=== PATIENT | male | born 1990 | race Caucasian/White ===

== ENCOUNTER 2022-02-20 17:59 | Emergency (ER) | payer MEDICAID, SELFPAY ==
[2022-02-20 18:01] VITALS: BP 142/89; PULSE 80; RESP 18; TEMP 36.7; O2SAT 96; BMI 47.0
--- NOTE | 2022-02-20 18:10 | EDS_ITS ---
HPI History of Present Illness Chief Complaint: Constipation Informant: patient Narrative Narrative: 31-year-old male presenting to the emergency department via EMS with a chief complaint of warm from my rectum. Patient states he was taken a shower today when a low wall worm came out of his rectum and was flopping around on the shower floor. He states that had long pointy ends to it. He states he has not had a good bowel movement for a week. He denies any anal itching. PFSH PFSH Medical History Anxiety Depressed Home Medications fluoxetine 40 mg PO DAILY 02/20/22 [History Last Taken Unknown] mebendazole 100 mg PO BID 3 Days #6 tab 02/20/22 [Rx Last Taken Unknown] trazodone 100 - 200 mg PO QHS 02/20/22 [History Last Taken Unknown] Allergy/AdvReac Type Severity Reaction Status Date / Time amphetamine Allergy Chest Verified 02/20/22 18:01 [From Adderall XR] tightness dextroamphetamine Allergy Chest Verified 02/20/22 18:01 [From Adderall XR] tightness Social History (Updated 02/20/22 @ 18:[address] Collins Garsia DO) Smoking Status: Current every day smoker tobacco type: cigarettes substance use type: does not use ROS ROS ED Constitutional Constitutional ED: Denies chills, fever(s) or weight loss Eyes Eyes: Denies change in vision or diplopia ENT ENT ED: Denies ear pain, rhinorrhea or sore throat Cardiovascular Cardiovascular: Denies chest pain, orthopnea, palpitations or racing heartbeat Respiratory/Chest Respiratory/Chest: Denies cough, dyspnea or orthopnea Gastrointestinal Gastrointestinal: Reports constipation; Denies abdominal pain, diarrhea, nausea or vomiting Genitourinary Genitourinary ED: Denies dysuria, hematuria or urinary frequency Musculoskeletal Musculoskeletal: Denies arthralgias or myalgias Integumentary Denies abscess or rash Neurologic Neurologic: Denies headache(s) or weakness Psychiatric Psychiatric: Denies anxiety, depression, suicidal ideation or suicidal thoughts Endocrine Endocrinology: Denies polydipsia, polyphagia or polyuria Allergic/Immunologic Allergic/Immunologic ED: Denies mouth swelling, tongue swelling or urticaria EXAM Physical Exam Const Vital Signs: 02/20/22 18:01 Temperature 98.1 F Temperature Source Temporal Pulse Rate 80 Respiratory Rate 18 Blood Pressure 142/89 H Blood Pressure Mean 106 Pulse Ox 96 Oxygen Delivery Method Room Air Positive well nourished and well developed General Appearance ED: well developed HEENT Reports normocephalic, head/scalp atraumatic, TM's clear and moist mucous membranes Negative for trauma Tympanic Membrane ED: Yes TM's clear Eyes PERRL and EOMs intact bilaterally Neck no lymphadenopathy, supple and no JVD Resp normal respiratory effort and clear to auscultation bilaterally Cardio regular rate, regular rhythm and no murmurs GI normal to inspection, nondistended, normoactive bowel sounds and non-tender Palpation: soft Back/Spine no CVA tenderness and normal ROM Extremity normal to inspection General Extremety ED: Negative for edema General Extremity: Negative for edema Neuro oriented x3 and CN's II-XII intact bilaterally Sensorium / Orientation: alert Motor Exam: strength 5/5 throughout Psych mental status grossly normal Mood & Affect: Negative for depressed or tearful Skin no rashes or lesions noted and no wounds MDM MDM MDM Narrative Medical decision making narrative: Despite being close enough to see pointed ends to this reported worm he is unable to tell me the color of it. I think it is reasonable to give him a course of mebendazole. As far as his constipation he should buy a bottle of magnesium citrate and start Colace. Discharge Plan Triage Chief Complaint: Constipation ED Provider: Collins Garsia Dx/Rx/DC Orders Clinical Impression: Roundworm infection, Constipation Instructions: Treating Constipation Prescriptions: New mebendazole 100 mg tablet,chewable 100 mg PO BID 3 Days Qty: 6 RF: 0 No Action fluoxetine 40 mg capsule 40 mg PO DAILY RF: 0 trazodone 100 mg tablet 100 - 200 mg PO QHS RF: 0 Primary Care Provider: Lamar Izquierdo Referrals: Lamar Izquierdo MD [Primary Care Provider] - As Needed Activity Restrictions/Additional Instructions: While at the pharmacy you should poultry picker a bottle of magnesium citrate and take a daily Colace until constipation resolves Disposition Disposition: Home, Self Care
== END 2022-02-20 18:28 | disposition home or self-care (01) ==
PROVIDERS: Emergency Provider Emergency Medicine; PCP Internal Medicine; Visit Provider Emergency Medicine
DX: K59.00 Constipation, unspecified (principal); F17.210 Nicotine dependence, cigarettes, uncomplicated; F41.9 Anxiety disorder, unspecified; F32.A Depression, unspecified; Z79.899 Other long term (current) drug therapy; B83.9 Helminthiasis, unspecified
CPT/HCPCS: 99284

== ENCOUNTER 2022-02-24 16:32 | Emergency (ER) | payer MEDICAID, SELFPAY ==
[2022-02-24 16:33] VITALS: BP 128/79; PULSE 75; RESP 18; TEMP 36.1; O2SAT 99; BMI 46.5
--- NOTE | 2022-02-24 16:47 | EKG12_ITS ---
Test Reason : GEN ILL Blood Pressure : / mmHG Vent. Rate : 072 BPM Atrial Rate : 072 BPM P-R Int : 160 ms QRS Dur : 094 ms QT Int : 398 ms P-R-T Axes : 017 031 050 degrees QTc Int : 435 ms Normal sinus rhythm Normal ECG Confirmed by EAGLE CONNOR, SHUN ([id number]), society editor GLORIA LONG ([id number]) on 02/25/2022 1:59:21 PM Referred By: Confirmed By:SHUN GUILLERMO MD
--- NOTE | 2022-02-24 16:48 | EX.ED.DYSGE1 ---
HPI History of Present Illness Chief Complaint: General Illness Detail of Chief Complaint: Generalized weakness and chest pain Informant: patient Onset/Context/Timing Onset: Today Narrative Narrative: Patient presents to the emergency department with fatigue that started this afternoon after going to the mailbox. Patient states that he sat down and was having chest discomfort that he describes as a sharp pain in his left chest. Denies any nausea or vomiting. Does feel short of breath. He has not had discomfort like this before. No history of PE or DVT. No cardiac history. Patient denies recent travel or surgery. Patient was seen in the emergency department recently for worms from his stool and constipation. Patient states that he has been having bowel movement since his last visit to the ER and his insurance company denied his prescription for mebendazole. Patient has not seen any more worms in his stool. Patient denies fever or recent illness. PFSH [facility] Medical History Anxiety Depressed Home Medications fluoxetine 40 mg PO DAILY 02/20/22 [History Last Taken Unknown] mebendazole 100 mg PO BID 3 Days #6 tab 02/20/22 [Rx Last Taken Unknown] trazodone 100 - 200 mg PO QHS 02/20/22 [History Last Taken Unknown] bupropion HCl mg PO 02/24/22 [History Last Taken Unknown] Allergy/AdvReac Type Severity Reaction Status Date / Time amphetamine Allergy Chest Verified 02/24/22 16:36 [From Adderall XR] tightness dextroamphetamine Allergy Chest Verified 02/24/22 16:36 [From Adderall XR] tightness Social History (Updated 02/20/22 @ 18:[address] Collins Garsia DO) Smoking Status: Current every day smoker tobacco type: cigarettes substance use type: does not use ROS ROS ED Constitutional Constitutional ED: Reports systems reviewed and no addt'l complaints, except as documented; Denies body ache(s), change in weight or chills Eyes Eyes: Denies acute decrease in peripheral vision, change in vision, double vision or loss of vision ENT ENT ED: Reports none; Denies ear pain, lip swelling, loss taste/smell, neck pain, otalgia or sore throat Cardiovascular Cardiovascular: Reports none and chest pain; Denies abdominal pain, chest pain with activity, leg edema, lightheadedness, palpitations, rapid heart rate or syncope Respiratory/Chest Respiratory/Chest: Reports none and dyspnea; Denies change in mental status, dry cough, hemoptysis, shortness of breath at rest or shortness of breath with exertion Gastrointestinal Gastrointestinal: Reports none; Denies abdominal pain, change in stool character, diarrhea, hematemesis, hematochezia, melena, rectal bleeding or vomiting Genitourinary Genitourinary ED: Reports none; Denies abdominal discomfort, anuria, dysuria, genital pain or polyuria Musculoskeletal Musculoskeletal: Reports none; Denies arthralgias, back pain, difficulty walking, extremity pain, muscle weakness or myalgias Integumentary Reports none; Denies abscess or rash Neurologic Neurologic: Reports none and weakness; Denies abnormal gait, confusion, focal weakness, frequent falls, headache(s), loss of vision, numbness, paresthesias, radicular pain or vertigo Psychiatric Psychiatric: Reports systems reviewed and no addt'l complaints, except as documented and none; Denies behavioral changes, confusion, difficulty concentrating, hallucinations, suicidal ideation, tactile hallucinations or visual hallucinations Endocrine Endocrinology: Denies none, cold intolerance, excessive sweating, fatigue or heat intolerance Hematologic/Lymphatic Hematologic/Lymphatic: Reports none; Denies anemia, easy bleeding or easy bruising Allergic/Immunologic Allergic/Immunologic ED: Denies as per HPI, none, lip swelling, mouth swelling, throat swelling, tongue swelling or hives EXAM Physical Exam Const Vital Signs: 02/24/22 16:33 Temperature 97 F L Temperature Source Temporal Pulse Rate 75 Respiratory Rate 18 Blood Pressure 128/79 H Blood Pressure Mean 95 Pulse Ox 99 Oxygen Delivery Method Room Air Positive well nourished and well developed General Appearance ED: well developed and NAD HEENT Reports TM's clear and moist mucous membranes normocephalic and atraumatic; Negative for trauma or tenderness Tympanic Membrane ED: Yes TM's clear Eyes PERRL and EOMs intact bilaterally General Eye ED: Negative for pale conjunctiva or scleral icterus Neck no lymphadenopathy, supple and no JVD General: Negative for tenderness Chest Wall inspection of chest normal and palpation of chest normal Chest: Negative for tenderness Resp normal respiratory effort and clear to auscultation bilaterally Effort and Inspection: Negative for respiratory distress or pain with movement Auscultation: Negative for rhonchi, wheezes or diminished lung sounds Cardio regular rate, regular rhythm, S1 normal heart sound, S2 normal heart sound and no murmurs Peripheral Pulses: pulses 2+ throughout GI normal to inspection, nondistended, normoactive bowel sounds, soft to palpation, non-tender, non-distended and no masses Back/Spine no CVA tenderness and no thoracic nor lumbar tenderness Extremity normal to inspection General Extremety ED: Negative for edema General Extremity: Negative for edema Neuro oriented x3, CN's II-XII intact bilaterally, no sensory deficits noted and gait normal Sensorium / Orientation: awake, alert, oriented to person, oriented to place and oriented to time Motor Exam: strength 5/5 throughout and strength abnormal Psych mental status grossly normal Skin no rashes or lesions noted and no wounds MDM MDM MDM Narrative Medical decision making narrative: IV line established on arrival. Lab work-up was normal. EKG was normal. D-dimer was normal. Troponin was normal. Chest x-ray was normal. At this point I do not feel there is anything significant regarding his dyspnea or chest pain. Patient's concerned about his worm situation and I did order outpatient stool for O&P. Patient advised to attempt through his primary care physician to get the medication that was prescribed to him through the emergency department. I feel patient can be discharged to home. Patient to follow-up with his primary care physician in 3 to 5 days. Lab Data Attestation: I reviewed the patient's lab results. Labs: Laboratory Results - last 24 hr 02/24/22 02/24/22 02/24/22 16:57 16:57 16:57 WBC 6.9 RBC 4.97 Hgb 14.2 Hct 42.1 MCV 84.7 MCH 28.6 MCHC 33.7 RDW Std Deviation 39.2 RDW Coeff of Yusef 12.8 Plt Count 242 MPV 9.3 D-Dimer Quant (PE/DVT) < 0.27 L Sodium 139 Potassium 3.7 Chloride 106 Carbon Dioxide 27.0 Anion Gap 6 BUN 12 Creatinine 0.72 Estim Creat Clear Calc 129.31 Est GFR (MDRD) Af Amer 165 Est GFR (MDRD) Non-Af 136 BUN/Creatinine Ratio 16.8 Glucose 128 H Calcium 9.5 Troponin I High Sens 4 Radiography Diagnostic Testing: Clinical Impression(s) from Imaging Studies Chest X-Ray 02/24/22 17:06 IMPRESSION: No acute cardiopulmonary process. Electronically Signed: Arsenio Escobedo MD at 17:43 EDT , Discharge Plan Triage Chief Complaint: General Illness ED Provider: Roxana Mas Dx/Rx/DC Orders Clinical Impression: Chest pain, Acute dyspnea Instructions: ED Chest Pain, Uncertain Cause, ED Dyspnea Prescriptions: No Action fluoxetine 40 mg capsule 40 mg PO DAILY RF: 0 trazodone 100 mg tablet 100 - 200 mg PO QHS RF: 0 mebendazole 100 mg tablet,chewable 100 mg PO BID 3 Days Qty: 6 RF: 0 bupropion HCl 150 mg tablet extended release 24 hr PO RF: 0 Primary Care Provider: Lamar Izquierdo Referrals: Lamar Izquierdo MD [Primary Care Provider] - Disposition Disposition: Home, Self Care
[2022-02-24 17:06] LABS: Hematocrit 42.1 % (40-54); Hemoglobin 14.2 g/dL (13.0-16.5); Mean Corp Hgb Conc 33.7 g/dL (32-36); Mean Corpuscular Hgb 28.6 pg (27.0-32.0); Mean Corpuscular Volume 84.7 fL (80-94); Mean Platelet Vol. 9.3 fl (6.2-12.0); Platelet Count 242 K/mm3 (150-450); RBC Distribution Width CV 12.8 % (11.6-14.6); RBC Distribution Width SD 39.2 fl (35.1-43.9); Red Blood Count 4.97 M/mm3 (4.6-6.2); White Blood Count 6.9 K/mm3 (4.4-11.0)
--- NOTE | 2022-02-24 17:06 | RAD_ITS ---
STUDY: X-RAY CHEST REASON FOR EXAM: Male, 31 years old. chest pain TECHNIQUE: 1 view COMPARISON: None. FINDINGS: Cardiomediastinal silhouette is unremarkable. Costophrenic angles are sharp. Lungs are clear. The trachea is midline. There is no pneumothorax. The bones are grossly intact. RAD/Chest 1 View (Portable) IMPRESSION: No acute cardiopulmonary process. Electronically Signed: Arsenio Escobedo MD at 17:43 EDT ,
[2022-02-24 17:23] LABS: Anion Gap 6 (5-15); BUN 12 mg/dL (7-18); BUN/Creat Ratio 16.8 RATIO (10-20); Calcium,Total 9.5 mg/dL (8.5-10.1); Chloride 106 mmol/L (98-107); Creatinine, Serum 0.72 mg/dL (0.70-1.30); D-Dimer Quantitative (DVT/PE) < 0.27 FEU/ug/m (0.27-0.49); EST Glomerular Filtration Rate 136 mL/min (>60); Est Glom Filt Rate - Afr Amer 165 mL/min (>60); Estimated Creatinine Clearance 129.31 ml/min; Glucose 128 mg/dL (74-106); Potassium 3.7 mmol/L (3.5-5.1); Sodium Level 139 mmol/L (136-145); Troponin-I HS 4 pg/mL (3.0-78.0)
[2022-02-24] MEDS: 0.9% Normal Saline 1,000 ML 150 ML IV (17:39)
[2022-02-24 18:57] VITALS: BP 142/76; PULSE 68; RESP 15; O2SAT 98
== END 2022-02-24 18:58 | disposition home or self-care (01) ==
PROVIDERS: Emergency Provider Emergency Medicine; PCP Internal Medicine; Visit Provider Emergency Medicine
DX: R07.9 Chest pain, unspecified (principal); R06.00 Dyspnea, unspecified; R53.1 Weakness; F17.210 Nicotine dependence, cigarettes, uncomplicated
CPT/HCPCS: 71045; 80048; 84484; 85027; 85379; 93005; 96360; 96361; 99285; J7030

== ENCOUNTER → 2022-02-25 | Outpatient (CLI) | payer MEDICAID, SELFPAY | END | disposition home or self-care (01) | LOC: LABSPEC 21:59 | PROVIDERS: PCP Internal Medicine; Visit Provider Emergency Medicine | DX: B82.0 Intestinal helminthiasis, unspecified (principal) | CPT/HCPCS: 87177; 87209 ==

== ENCOUNTER 2024-06-16 15:40 | Emergency (ER) | payer MEDICAID, SELFPAY ==
[2024-06-16 15:41] VITALS: BP 154/69; PULSE 57; RESP 16; TEMP 36.4; O2SAT 98; BMI 45.5
--- NOTE | 2024-06-16 15:53 | VDLE_ITS ---
Reason For Study: Bialteral leg swelling RIGHT LEFT GSV is normal. GSV is normal. CFV is compressible, spontaneous, phasic, CFV is compressible, spontaneous, phasic, competent and demonstrates normal competent, and demonstrates normal augmentation. augmentation. FV is compressible, spontaneous, phasic, FV is compressible, spontaneous, phasic, competent and demonstrates normal competent and demonstrates normal augmentation. augmentation. POP V is compressible, spontaneous, phasic, POP V is compressible, spontaneous, phasic, competent and demonstrates normal competent and demonstrates normal augmentation. augmentation. T/P Trunk is compressible. T/P Trunk is compressible. PTV is compressible. PTV is compressible. RT PerV is compressible. LT PerV is compressible. Procedure This is a venous duplex using B-mode, color flow and spectral Doppler. Exam performed portable in ED. A preliminary report was called and/or faxed to Dr. Mas. VL/Venous Duplex US - Ramón Extrem Interpretation Summary Deep veins of the bilateral lower extremities are patent and compressible segme ntally. There is no evidence of bilateral lower extremity deep vein thrombosis. The bilateral great saphenous veins appear patent and compressible segmentally. Ordering Physician: Roxana Mas Referring Physician: Lamar Izquierdo Performed By: Bri Younger RVT
--- NOTE | 2024-06-16 15:54 | EDS_ITS ---
HPI History of Present Illness Chief Complaint: Edema Detail of Chief Complaint: Leg edema Informant: patient Narrative Narrative: Patient presents to the emergency department complaint of leg edema x 2 weeks. Patient describes normal urination. Denies recent travel or surgery. Denies any new medications. Denies chest pain or shortness of breath. Denies fever or recent illness. [facility] Medical History (Updated 06/16/24 @ 18:[address] Roxana Mas, DO) Schizophrenia Anxiety Depressed Home Medications ?Medication ?Instructions ?Recorded ?Last Taken ?Type fluoxetine 40 mg capsule 40 mg PO DAILY 02/20/22 Unknown History mebendazole 100 mg chewable tablet 100 mg PO BID 3 days #6 tabs 02/20/22 Unknown Rx trazodone 100 mg tablet 100 - 200 mg PO QHS 02/20/22 Unknown History bupropion HCl 150 mg 24 hr tablet, mg PO 02/24/22 Unknown History extended release furosemide 20 mg tablet (Lasix) 20 mg PO DAILY #5 tabs 06/16/24 Unknown Rx Allergy/AdvReac Type Severity Reaction Status Date / Time amphetamine (From Adderall Allergy Chest Verified 06/16/24 15:45 XR) tightness dextroamphetamine (From Allergy Chest Verified 06/16/24 15:45 Adderall XR) tightness Social History Smoking Status: Current every day smoker tobacco type: cigarettes substance use type: does not use ROS ROS ED Review of Systems ROS Unobtainable: other Constitutional Constitutional ED: Reports lethargy; Denies chills, fever(s), sweats or weight loss Eyes Eyes: Denies blurry vision, change in vision or diplopia ENT ENT ED: Denies rhinorrhea or sore throat Cardiovascular Cardiovascular: Denies chest pain, orthopnea or racing heartbeat Respiratory/Chest Respiratory/Chest: Denies cough, dyspnea, dyspnea on exertion, orthopnea or sputum Gastrointestinal Gastrointestinal: Denies abdominal pain, diarrhea, nausea or vomiting Genitourinary Genitourinary ED: Denies dysuria, hematuria or urinary frequency Musculoskeletal Musculoskeletal: Reports other Details: Bilateral leg edema ; Denies arthralgias, back pain, myalgias or neck pain Integumentary Denies abscess, Abrasions or rash Neurologic Neurologic: Denies headache(s) or weakness Psychiatric Psychiatric: Denies anxiety, depression or suicidal thoughts Endocrine Endocrinology: Denies polydipsia, polyphagia or polyuria Hematologic/Lymphatic Hematologic/Lymphatic: Denies easy bleeding, easy bruising or lymphadenopathy Allergic/Immunologic Allergic/Immunologic ED: Denies mouth swelling, tongue swelling or urticaria EXAM Physical Exam Const Vital Signs: 06/16/24 15:41 06/16/24 15:44 Temperature 97.5 F L Temperature Source Oral Pulse Rate 57 L Respiratory Rate 16 Respiratory Effort Normal Non-Labored Respiratory Pattern Normal Blood Pressure 154/69 H Blood Pressure Mean 97 Pulse Ox 98 Oxygen Delivery Method Room Air Positive well nourished and well developed General Appearance ED: well developed and NAD HEENT Reports TM's clear and moist mucous membranes normocephalic and atraumatic; Negative for trauma or tenderness Tympanic Membrane ED: Yes TM's clear Eyes PERRL and EOMs intact bilaterally General Eye ED: Negative for pale conjunctiva or scleral icterus Neck no lymphadenopathy, supple and no JVD General: Negative for tenderness Chest Wall inspection of chest normal and palpation of chest normal Chest: Negative for tenderness Resp normal respiratory effort and clear to auscultation bilaterally Effort and Inspection: Negative for respiratory distress or pain with movement Auscultation: Negative for rhonchi, wheezes or diminished lung sounds Cardio regular rate, regular rhythm, S1 normal heart sound, S2 normal heart sound and no murmurs Peripheral Pulses: pulses 2+ throughout GI normal to inspection, nondistended, normoactive bowel sounds, soft to palpation, non-tender, non-distended and no masses Back/Spine no CVA tenderness and no thoracic nor lumbar tenderness Extremity Extremity Narrative: +2 edema from the knees down to the feet. No ropes or cords palpated. No cellulitic changes. General Extremety ED: Negative for edema General Extremity: Negative for edema Neuro oriented x3, CN's II-XII intact bilaterally, no sensory deficits noted and gait normal Sensorium / Orientation: awake, alert, oriented to person, oriented to place and oriented to time Motor Exam: strength 5/5 throughout and strength abnormal Psych mental status grossly normal Skin no rashes or lesions noted and no wounds MDM MDM MDM Narrative Medical decision making narrative: Patient presents with leg edema for more than 2 weeks. Unsure if he is eating more salt than usual. He is urinating normally. Clinically looks well. In the differential would be DVTs versus kidney disease versus myxedema or other etiology. IV line established. Venous Dopplers of both lower extremities obtained were negative for DVT. CBC with differential showed a white count of 5.6 with hemoglobin of 11 and platelet count of 225. Chemistries unremarkable. BUN was 2 and creatinine 0.67. BNP minimally elevated at 112. TSH was normal at 1.49. Clinically I do not feel he has CHF. Etiology of his edema unclear. I will order Lasix for 5 days. Advised to follow-up with his primary care physician within next 5 to 7 days. Advised to return if condition should worsen anyway. Lab Data Attestation: I reviewed the patient's lab results. Labs: Laboratory Results - last 24 hr 06/16/24 06/16/24 16:02 16:43 WBC 5.6 RBC 3.97 L Hgb 11.0 L Hct 33.6 L MCV 84.6 MCH 27.7 MCHC 32.7 RDW Std Deviation 42.4 RDW Coeff of Yusef 13.6 Plt Count 225 MPV 10.1 Immature Gran % (Auto) 0.400 Neut % (Auto) 66.7 Lymph % (Auto) 24.3 [place] % (Auto) 6.4 Eos % (Auto) 1.8 Baso % (Auto) 0.4 Absolute Neuts (auto) 3.7 Absolute Lymphs (auto) 1.36 Nucleated RBC % 0 Sodium 139 Potassium 4.0 Chloride 108 H Carbon Dioxide 26.0 Anion Gap 5 BUN 2 L Creatinine 0.67 L Estim Creat Clear Calc 191.95 Est GFR (MDRD) Af Amer 176 Est GFR (MDRD) Non-Af 145 BUN/Creatinine Ratio 3.0 L Glucose 103 Calcium 9.1 Total Bilirubin 0.60 AST 16 ALT 36 Alkaline Phosphatase 62 B-Natriuretic Peptide 112.3 H Total Protein 6.4 Albumin 3.2 Globulin 3.2 Albumin/Globulin Ratio 1.0 TSH 1.490 Urine Color Yellow Urine Clarity Clear Urine pH 6.5 Ur Specific [place] 1.010 Urine Protein Negative Urine Glucose (UA) Normal Urine Ketones Negative Urine Occult Blood Negative Urine Nitrite Negative Urine Bilirubin Negative Urine Urobilinogen Normal Ur Leukocyte Esterase Negative Urine RBC 0 SEEN Urine WBC 0 SEEN Ur Squamous Epith Cells 0 SEEN Urine Bacteria 0 SEEN Urine Mucus 0 SEEN Discharge Plan Triage Chief Complaint: Edema ED Provider: Roxana Mas Dx/Rx/DC Orders Clinical Impression: Edema, peripheral Instructions: ED Peripheral Edema, Bilateral Prescriptions: New furosemide [Lasix] 20 mg tablet 20 mg PO DAILY Qty: 5 0RF No Action fluoxetine 40 mg capsule 40 mg PO DAILY trazodone 100 mg tablet 100 - 200 mg PO QHS mebendazole 100 mg tablet,chewable 100 mg PO BID 3 Days Qty: 6 0RF bupropion HCl 150 mg tablet extended release 24 hr PO Primary Care Provider: Care Physician,No Primary Referrals: Lamar Izquierdo MD [Med Staff - [facility]] - 5-7 Days Print Language: Croatian Disposition Disposition: Home, Self Care
[2024-06-16 16:09] LABS: Absolute Lymphocyte Count 1.36 X10^3/uL (0.83-4.51); Absolute Neutrophil Count 3.7 X10^3/uL (2.0-7.7); Basophil# 0.02 X10^3/uL; Basophil% 0.4 % (0-1); Eosinophils% 1.8 % (0-5); Hematocrit 33.6 % (40-54); Lymphocyte # 1.36 X10^3/ul (0.83-4.51); Lymphocyte % 24.3 % (19-41); Mean Corp Hgb Conc 32.7 g/dL (32-36); Mean Corpuscular Hgb 27.7 pg (27.0-32.0); Mean Corpuscular Volume 84.6 fL (80-94); Mean Platelet Vol. 10.1 fl (6.2-12.0); Monocyte# 0.36 X10^3/uL; Monocyte% 6.4 % (0-10); NRBC Flagged by Analyzer 0 % (0-5); Neutrophil # 3.73 X10^3/uL (2.7-7.7); Neutrophil % 66.7 % (47-70); Platelet Count 225 K/mm3 (150-450); RBC Distribution Width CV 13.6 % (11.6-14.6); RBC Distribution Width SD 42.4 fl (35.1-43.9); Red Blood Count 3.97 M/mm3 (4.6-6.2); White Blood Count 5.6 K/mm3 (4.4-11.0)
[2024-06-16 16:37] LABS: AST(SGOT) 16 U/L (15-37); Alanine Aminotransfer ALT/SGPT 36 U/L (16-61); Albumin, Serum 3.2 g/dL (3.2-5.0); Alkaline Phosphatase 62 U/L (45-117); Anion Gap 5 (5-15); BUN 2 mg/dL (7-18); Calcium,Total 9.1 mg/dL (8.5-10.1); Chloride 108 mmol/L (98-107); Creatinine, Serum 0.67 mg/dL (0.70-1.30); EST Glomerular Filtration Rate 145 mL/min (>60); Est Glom Filt Rate - Afr Amer 176 mL/min (>60); Estimated Creatinine Clearance 191.95 ml/min; Globulin 3.2 g/dL (2.2-4.2); Glucose 103 mg/dL (74-106); Protein, Total 6.4 g/dL (6.4-8.2); Sodium Level 139 mmol/L (136-145)
[2024-06-16 16:47] LABS: BNP,B-Type NATRIURETIC PEPTIDE 112.3 pg/mL (0-100)
[2024-06-16 16:49] LABS: Bacteria 0 SEEN /hpf (None Seen); Mucous, Urine 0 SEEN /hpf (<or=2+); Red Blood Cells-Urine 0 SEEN /hpf (0-5); Squamous Epithelial Cells - UA 0 SEEN /hpf (0-5); White Blood Cells 0 SEEN /hpf (0-5)
[2024-06-16 16:51] LABS: Color, Urine Yellow (Yellow); Glucose, Dipstick Normal (Normal); Ketone-Dipstick Negative (Negative); Leukocyte Esterase-Dipstick Negative /ul (Negative); Nitrite-Dipstick Negative (Negative); Occult Blood-Urine Negative /ul (Negative); Protein-Dipstick Negative (Negative); Urine Bilirubin Dipstick Negative (Negative); Urine Clarity Clear (Clear); Urine Urobilinogen Normal (Normal); Urine pH 6.5 (5.0 - 8.0)
[2024-06-16 18:09] VITALS: BP 147/88; PULSE 78; RESP 18; TEMP 37; O2SAT 99
== END 2024-06-16 18:12 | disposition home or self-care (01) ==
PROVIDERS: Emergency Provider Emergency Medicine; Visit Provider Emergency Medicine
DX: R60.0 Localized edema (principal); F17.210 Nicotine dependence, cigarettes, uncomplicated
CPT/HCPCS: 80053; 81001; 83880; 84443; 85025; 93970; 99283; A4216

== ENCOUNTER → 2025-02-24 | Outpatient (CLI) | payer MEDICAID, SELFPAY ==
[2025-02-24 09:42] LABS: Absolute Lymphocyte Count 2.07 X10^3/uL (0.83-4.51); Basophil# 0.03 X10^3/uL; Basophil% 0.5 % (0-1); Eosinophil# 0.13 X10^3/uL; Eosinophils% 2.3 % (0-5); Hematocrit 40.7 % (40-54); Hemoglobin 13.9 g/dL (13.0-16.5); Lymphocyte # 2.07 X10^3/ul (0.83-4.51); Lymphocyte % 36.8 % (19-41); Mean Corp Hgb Conc 34.2 g/dL (32-36); Mean Corpuscular Hgb 28.7 pg (27.0-32.0); Mean Corpuscular Volume 84.1 fL (80-94); Mean Platelet Vol. 9.9 fl (6.2-12.0); Monocyte# 0.43 X10^3/uL; Monocyte% 7.7 % (0-10); NRBC Flagged by Analyzer 0 % (0-5); Neutrophil # 2.95 X10^3/uL (2.7-7.7); Neutrophil % 52.5 % (47-70); Platelet Count 244 K/mm3 (150-450); RBC Distribution Width CV 13.2 % (11.6-14.6); RBC Distribution Width SD 40.7 fl (35.1-43.9); Red Blood Count 4.84 M/mm3 (4.6-6.2); White Blood Count 5.6 K/mm3 (4.4-11.0)
[2025-02-24 10:46] LABS: ALB/GLOB Ratio 1.4 RATIO (0.9-2.4); AST(SGOT) 17 U/L (<=37); Alanine Aminotransfer ALT/SGPT 27 U/L (<=46); Albumin, Serum 4.3 g/dL (3.5-5.0); Alkaline Phosphatase 76 U/L (40-129); Anion Gap 11 (5-15); BUN 14 mg/dL (4-19); BUN/Creat Ratio 16.1 RATIO (10-20); Calcium,Total 9.2 mg/dL (7.6-11.0); Carbon Dioxide 23.2 mmol/L (21.0-32.0); Chloride 104 mmol/L (98-108); Cholesterol 160 mg/dL (<=200); Creatinine, Serum 0.84 mg/dL (0.70-1.20); EST Glomerular Filtration Rate 117 (>60); Estradiol 46.5 pg/mL; Glucose 147 mg/dL (70-99); High Density Lipoprotein 43 mg/dL; Low Density Lipoprotein Calc. 80 mg/dL; Potassium 4.3 mmol/L (3.3-5.1); Protein, Total 7.4 g/dL (5.9-8.4); Sodium Level 138 mmol/L (133-145); Total Bilirubin 0.46 mg/dL (0.00-1.30); Triglycerides 182 mg/dL; Very Low Density Lipoprotein 36 mg/dL (5-40); Vitamin D,25 Hydroxy 11.9 ng/mL (30-100)
== END | disposition home or self-care (01) ==
LOC: LAB 08:30
DX: F64.0 Transsexualism (principal); Z51.81 Encounter for therapeutic drug level monitoring; Z79.890 Hormone replacement therapy; Z86.39 Personal history of other endocrine, nutritional and metabolic disease
CPT/HCPCS: 36415; 80053; 80061; 82306; 82670; 84403; 85025

== ENCOUNTER → 2025-05-25 | Outpatient (CLI) | payer MEDICAID, SELFPAY ==
[2025-05-25 14:29] LABS: Hematocrit 37.3 % (40-54); Hemoglobin 13.0 g/dL (13.0-16.5); Immature Granulocytes Count 0.010 X10^3/uL (0.0-0.0); Mean Corp Hgb Conc 34.9 g/dL (32-36); Mean Corpuscular Volume 83.3 fL (80-94); Mean Platelet Vol. 9.6 fl (6.2-12.0); NRBC Flagged by Analyzer 0 % (0-5); Platelet Count 241 K/mm3 (150-450); RBC Distribution Width CV 13.2 % (11.6-14.6); RBC Distribution Width SD 40.2 fl (35.1-43.9); Red Blood Count 4.48 M/mm3 (4.6-6.2); White Blood Count 6.9 K/mm3 (4.4-11.0)
[2025-05-25 15:23] LABS: AST(SGOT) 18 U/L (<=37); Alanine Aminotransfer ALT/SGPT 32 U/L (<=46); Albumin, Serum 4.2 g/dL (3.5-5.0); Alkaline Phosphatase 61 U/L (40-129); Anion Gap 13 (5-15); BUN 15 mg/dL (4-19); BUN/Creat Ratio 22.7 RATIO (10-20); Calcium,Total 9.5 mg/dL (7.6-11.0); Carbon Dioxide 21.0 mmol/L (21.0-32.0); Chloride 101 mmol/L (98-108); Globulin 2.8 g/dL (2.2-4.2); Glucose 132 mg/dL (70-99); Potassium 4.3 mmol/L (3.3-5.1)
--- OUTSIDE RECORDS SUMMARY | 2025-05-25 20:18 | XMS RPT_ITS | CCD ---
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 Name Role Phone Lamar Mejias MD Primary Care Provider GANTA, LAMAR Primary Care Unavailable GANTA, LAMAR Attending Unavailable RANDELL, LAMAR Attending Unavailable GANTA, LAMAR Primary Care Unavailable GANTA, LAMAR Referring Unavailable GANTA, LAMAR Primary Care Unavailable KARI JOINER Attending Unavailable SHERTA, LAMAR Primary Care Unavailable COLLINS NEFF Attending Unavailable KARI JOINER Referring Unavailable SHY PRATT Attending Provider Care Physician, No Primary Primary Care Provider Unavailable Barrington Arambula Attending Unavailable Ungur, Remus Referring Unavailable Care Physician, No Primary Primary Care Unava ilable Care Physician, No Primary Primary Care Unava ilable BLANCA, 1 Attending Unavailable Ungur, Remus Attending Unavailable Care Physician, No Primary Primary Care Unava ilable TERENCE, SHY Attending Unavailable TERENCE, SHY Primary Care Unavailable TERENCE, SHY Attending Unavailable TERENCE, SHY Primary Care Unavailable TERENCE, SHY Attending Unavailable TERENCE, SHY Primary Care Unavailable TERENCE, SHY Attending Unavailable TERENCE, SHY Primary Care Unavailable Allergies Allergy Classification Reported Allergen(s) Allergy Type Date of Onset Reaction(s) Facility (3 sources) Amphetamine Drug Allergy 02-21-20 Chest tightness [facility] (3 sources) Dextroamphetamine Drug Allergy 02-21-20 Chest tightness [facility] (4 sources) DULoxetine; Translations: [DULOXETINE] Drug Allergy 07-07-20 Other: See Comments [facility] Work Phone: (1 source) Amphetamine Drug Allergy 06-16-20 [facility] Repository (1 source) Dextroamphetamine Drug Allergy 06-16-20 [facility] Repository Medications Current Medications Medication Drug Class(es) Dates Sig (Normalized) Sig (Original) 24 hr buPROPion hydrochloride 150 mg extended release oral tablet (2 sources) Aminoketone Start: 02-24-2022 Bupropion Hcl Active MG PO February 24, 2022 4:44pm Start: 02-24-2022 take 1 tablet by kathia th every twenty-four hours Bupropion Hcl 150 mg tablet extended release 24 hr Active mg PO February 24, 2022 12:00am furosemide 20 mg oral tablet (1 source) Loop Diuretic Start: 06-16-2024 take 1 tablet by mouth once daily Furosemide (Lasix) 20 mg tablet Active 20 mg PO DAILY June 16, 2024 12:00am mebendazole 100 mg chewable tablet (3 sources) Antihelminthic Start: 02-20-2022 take 100 mg by mouth twice daily Mebendazole Active 100 MG PO TWICE A DAY 6 February 20, 2022 6:14pm sulfamethoxazole 800 mg / trimethoprim 160 mg oral tablet (1 source) Dihydrofolate Reductase Inhibitor Antibacterial, Sulfonamide Antimicrobial Start: 05-27-2022 End: 06-06-2022 take 1 tablet by mouth twice daily sulfamethoxazole -trimethoprim (BACTRIM DS) 800-160 mg per tablet Take 1 tablet by mouth twice daily for 10 days. 20 tablet 0 05/27/2022 06/06/2022 Active Comment on above: Take 1 tablet by kathia th twice daily for 10 days. Completed/Discontinued Medications Medication Drug Class(es) Dates Sig (Normalized) Sig (Original) busPIRone hydrochloride 10 mg oral tablet (2 sources) Start: 03-12-2022 take 1 tablet by mouth twice daily busPIRone (BUSPAR) 10 mg tablet Indications: Anxiety and depression Take 1 tablet by mouth twice daily. 60 tablet 0 03/12/2022 Active Comment on above: Take 1 tablet by kathia th twice daily. FLUoxetine 40 mg oral capsule (6 sources) Serotonin Reuptake Inhibitor Start: 03-12-2022 take 1 capsule by mouth once daily FLUoxetine (PROZAC) 40 mg capsule Indications: Anxiety and depression Take 1 capsule by mouth once daily. 0 03/12/2022 Active Start: 02-20-2022 take 40 mg by mouth once daily Fluoxetine Active 40 MG PO DAILY May 11th, 2022 6:04pm Start: 07-07-2020 take 1 tablet by kathia once daily FLUoxetine 10 mg tablet Take 1 tablet by mouth once daily. 30 tablet 4 07/07/2020 Active Comment on above: Take 1 tablet by kathia once daily. Take 1 capsule by [facility] once daily. mupirocin 0.02 mg/mg topical ointment (2 sources) RNA Synthetase Inhibitor Antibacterial Start: 11-19-19 End: 05-27-20 mupirocin (BACTROBAN) 2 % ointment Apply 1 application to affected area three times daily. 100 g 1 11/19/2019 05/27/2022 Discontinued (Discontinued by Patient) Comment on above: Apply 1 application to affected area three times daily. 24 hr nicotine 0.292 mg/hr transdermal system (6 sources) Cholinergic Nicotinic Agonist Start: 04-11-20 End: 06-10-20 apply 1 dose transdermal route every twenty-four hours nicotine (NICODERM) 7 mg/24 hr Indications: Tobacco use disorder Apply 1 Patch as directed every 24 hours for 14 days. Use the 14mg patches once daily for 2 weeks then start the 7mg patches daily for 2 weeks. 14 Patch 0 05/27/2022 Active Start: 03-12-2022 End: 06-10-2022 apply 1 dose transdermal route every twenty-four hours nicotine (NICODERM) 14 mg/24 hr Indications: nicotine withdrawal symptoms , smoking cessation Apply 1 Patch as directed every 24 hours for 14 days. Use the 14mg once daily for 2 weeks then start the 7mg patches for 2 weeks. 14 Patch 0 05/27/2022 Active Comment on above: Apply 1 Patch as dir ected every 24 hours for 14 days. Use the 14mg once daily for 2 weeks then start the 7mg patches for 2 weeks. Apply 1 Patch as dir ected every 24 hours for 14 days. Use the 14mg patches once daily for 2 weeks then start the 7mg patches daily for 2 weeks. Apply 1 Patch as dir ected every 24 hours. traZODone hydrochloride 100 mg oral tablet (6 sources) Serotonin Reuptake Inhibitor Start: 2 take 2 tablets by mouth once daily at bedtime traZODone (DESYREL) 100 mg tablet Indications: Anxiety and depression Take 2 tablets by mouth daily at bedtime. 0 03/12/2022 Active Start: 09-11-2021 take 100-200 mg by m outh at bedtime Trazodone 100 mg tablet Active 100 - 200 mg PO AT BEDTIME February 20, 2022 12:00am Comment on above: Take 1 tablet by kathia th daily at bedtime. Take 2 tablets by mo uth daily at bedtime. Problems Active Problems Problem Classification Problem Date Documented Da te Episodic/Chronic Anal and rectal conditions (2 sources) Rectal abscess ; Translations: [Rectal abscess] Onset: 06-24-2022 Episodic Anxiety disorders (3 sources) Anxiety; Translations: [Anxiety disorder, unspecified] Onset: 01-16-2016 10-08-2021 Chronic Attention-deficit, conduct, and disruptive behavior disorders (3 sources) Attention deficit hyperactivity disorder 05-21-2011 Chronic Developmental disorders (3 sources) Intellectual disability; Translations: [Unspecified intellectual disabilities] Onset: 01-16-2016 10-08-2021 Chronic Hemorrhoids (1 source) Thrombosed external hemorrhoids; Translations: [Perianal venous thrombosis] Episodic Menopausal disorders (2 sources) Hormone replacement therapy; Translations: [Hormone replacement therapy] Onset: 01-24-2023 Episodic Miscellaneous mental health disorders (5 sources) Transsexualism; 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, unspecified] Onset: 01-24-2023 Chronic Nonspecific chest pain (2 sources) Chest pain; Translations: [Chest pain, unspecified] 03-04-2022 Episodic Other aftercare (2 sources) Encounter for therapeutic drug level monitoring; Translations: [Encounter for therapeutic drug level monitoring] Onset: 05-23-2025 Episodic Other gastrointestinal disorders (3 sources) Constipation; Translations: [Constipation, unspecified] 02-28-2022 Episodic Other infections; including parasitic (3 sources) Ascariasis; Translations: [Ascariasis, unspecified] 02-28-2022 Episodic Other lower respiratory disease (2 sources) Dyspnea; Translations: [Dyspnea, unspecified] 03-04-2022 Episodic Residual codes; unclassified (3 sources) Auditory hallucinations; Translations: [Auditory hallucinations] 10-08-2021 Episodic Residual codes; unclassified (1 source) Peripheral edema; Translations: [Localized edema] 06-24-2024 Episodic Substance-related disorders (4 sources) Tobacco user; Translations: [Nicotine dependence, unspecified, uncomplicated] 10-08-2021 Chronic Unclassified (1 source) Patient's noncompliance with other medical treatment and regimen due to unspecified reason; Translations: [Patient's noncompliance with other medical treatment and regimen due to unspecified reason] Onset: 01-24-2025 Past or Other Problems Problem Classification Problem Date Documented Date Episodic/Chronic Other nutritional; endocrine; and metabolic disorders (2 sources) Personal history of other endocrine, nutritional and metabolic disease; Translations: [Personal history of other endocrine, nutritional and metabolic disease] Onset: 01-24-2025 Episodic Residual codes; unclassified (1 source) Localized edema; Translations: [Localized edema] Onset: 07-06-2024 Episodic Spondylosis; intervertebral disc disorders; other back problems (3 sources) Backache; Translations: [Dorsalgia, unspecified] Onset: 05-06-2011 05-06-2011 Episodic Unclassified (1 source) Patient's noncompliance with other medical treatment and regimen due to unspecified reason; Translations: [Patient's noncompliance with other medical treatment and regimen due to unspecified reason] Onset: 01-24-2025 Results Test Name Value Interpretation Reference Range Facility Office Visiton 05-23-2025 Follow-up visit [id number] Bishop Canales 1990 M Date Provider Department Center 05/23/2025 [id number] PR[facility] Family History Problem Relation Age of Onset Seizures Mother Suicide Attempts Mother Bipolar disorder Father Schizophrenia Father Alcohol abuse Father Muscular dystrophy Brother Other Brother Muscular dystrophy Brother Comments: at age 22 after requesting t be taken off life support Family Status - Relation Status Age at Mother Father Brother Alive Brother Level of Service:[id number] NE OFFICE/OUTPATIENT ESTABLISHED MOD MDM 30 MIN Reason for Visit and Comments: 3 Month Follow Up [[id number]] - 3m hrt follow up, requesting bilateral ear flushing Normal [facility] Progress Noteon 05-23-2025 Progress Note [facility] [address] [place] [address] 05/23/2025 ASSESSMENT AND PLAN 1. Hormone replacement therapy 2. Medication monitoring encounter 3. Gender incongruence Tolerating estrogen, spironolactone Patient is seeing positive results from medication & is getting expected/desired physical changes. - Discussed switching to injections. Has been on in the past reviewed injection process today Continue with HRT- Will refill/adjust medication based on labwork,. Refills sent after labs return - Patient continues to meet criteria for use of gender-affirming hormone therapy - Continuing gender-affirming hormone therapy is medically necessary and withholding or terminating its use would cause harm to the patient Labs ordered: - CBC auto differential - Comprehensive metabolic panel - Estradiol - Testosterone - Estrone Diagnosis and treatment plan were reviewed with patient and they agreed with the current treatment plan. Their questions were answered, and they verbalized understanding of above instructions. Contact office with questions or concerns in the interim. Return to clinic in 3 months or sooner p.r.n. SUBJECTIVE HPI: -Ellie Canales is a 34 y.o. adult here for follow up- hormone replacement therapy. 1) HRT HARITHA: 01/24/2025 Medical transition Started on hormones: 2 years ago, 12/10/22 - regiment: roland 150mg dose and estradiol 4 mg daily sublingual Side effects: none, tolerating well much better compliance with daily oral. Current transition concerns: wanting tapia breasts, not interested in returning on Progesterone. Would like switch back to injections Changes seen to date: softer skin, body hair growing in thinner and longer facial hair growth, breast growth continues, mood ok, body contour changes. Has been off roland for 3 days notes increased libido and energy Other transition goals/progress Surgical transition: not interested in any surgeries at this time Legal transition: completed [facility]ie [facility], certificate changed name. Has not changed gender markers. Waiting for new SS card and insurance Voice transition: unable to go to visits -transportation issues. Going to work on it at home. Social transition- Falling out with family- were not supportive. Does have case workers & therapists that are supportive they consider them a support network. Social/Interim Hx: - chronic mental health conditions- managed by psychiatry- stable on current medications Changed to wellbutrin from prozac tolerating well - Fishing Workercleveland zuleta present today and is their ride. Will have a new case management coordinator soon - barriers to compliance-transport ation issues ROS Review of Systems Constitutional: Negative for fatigue and fever. Eyes: Negative for visual disturbance. Respiratory: Negative for shortness of breath. Cardiovascular: Negative for chest pain and palpitations. Gastrointestinal: Negative for nausea. Skin: Negative for rash. Neurological: Negative for dizziness and headaches. Psychiatric/Behavior al: Positive for dysphoric mood. The patient is nervous/anxious. +gender dysphoria Medical History[1] Current Medications[2] Social History Tobacco Use Smoking status: Former Current packs/day: 0.00 Average packs/day: 0.8 packs/day for 14.0 years (11.2 ttl pk-yrs) Types: Cigarettes Start date: 2003 Quit date: 2017 Years since quittin.6 Smokeless tobacco: Never Tobacco comments: Reports he started smoking at age 13 and quit at 17, but information differs by patient self-reporting. Substance Use Topics Alcohol use: Not Currently Comment: reports being social drinker, heavy drinker and binge drinker at different times Surgical History[3] OBJECTIVE Vitals: 05/23/25 0907 BP: 102/54 Pulse: 71 SpO2: 96% Weight: 264 lb (120 kg) Height: 5' 6 (1.676 m) Physical Exam Vitals and nursing note reviewed. Constitutional: General: Ember is not in acute distress. Appearance: Normal appearance. Comments: Using phone (typing) often throughout visit. Limited eye contact but responds to questions HENT: Head: Atraumatic. Eyes: Extraocular Movements: Extraocular movements intact. Conjunctiva/sclera: Conjunctivae normal. Cardiovascular: Rate and Rhythm: Normal rate and regular rhythm. Pulmonary: Effort: Pulmonary effort is normal. Skin: General: Skin is warm and dry. Neurological: Mental Status: Ember is alert and oriented to person, place, and time. Psychiatric: Mood and Affect: Mood normal. Affect is flat. Behavior: Behavior normal. Thought Content: Thought content normal. Data Reviewed Labs/Imaging/Testing /Notes: outside pertinent to review none. -- Shy Pratt PA-C [1] Past Medical History: Diagnosis Date ADHD (attention deficit hyperactivity disorder) 05/04/2020 Anxiety Auditory hallucinations 05/21/2011 Bipolar d (more content not included)... Normal [facility] Absolute lymphocyte counton 02-24-2025 Lymphocytes Auto (Unsp spec) [#/Vol] 2.07 10*3/uL 0.83-4.51 [facility] Absolute neutrophil counton 02-24-2025 Neutrophils (Bld) [#/Vol] 3.0 10*3/uL 2.0-7.7 [facility] Anion gap in Serum or Plasma on 02-24-2025 Anion gap [Moles/Vol] 11 mmol/L 02-24 [facility] Automated lymphocyte count a s percentage of total leukocyteson 02-24-2025 Lymphocytes/100 WBC Auto (Unsp spec) 36.8 % [facility] BUN/creatinine ratioon 02-24 Urea nitrogen/Creatinine [Mass ratio] 16.1 mg/mg 08-01 [facility] Basophil percentageon 2024 Basophils/100 WBC (Bld) 0.5 % 0- [facility] Bilirubin, totalon Bilirubin [Mass/Vol] 0.46 mg/dL 0.00-1.30 [facility] CBC W/Diff, Automatedon 02-10 Absolute Lymph 2.07 X10 3/uL Normal 0.83-4.51 [facility] Comment on above: Performed By: #### L 506.1001, L500.4100, L100.0100, L500.4050, L3300.1750, L509.3001 #### [facility] [address] [place], [address] Absolute Neut 3.0 X10 3/uL Normal 2.0-7.7 [facility] Comment on above: Performed By: #### L 506.1001, L500.4100, L100.0100, L500.4050, L3300.1750, L509.3001 #### [facility] [address] [place], [address] Basophils/100 WBC (Bld) 0.5 % Normal 0-1 [facility] Comment on above: Performed By: #### L 506.1001, L500.4100, L100.0100, L500.4050, L3300.1750, L509.3001 #### [facility] [address] [place], [address] Eosinophils/100 WBC (Bld) 2.3 % Normal 0-5 [facility] Comment on above: Performed By: #### L 506.1001, L500.4100, L100.0100, L500.4050, L3300.1750, L509.3001 #### [facility] [address] [place], [address] Erythrocyte distribution width (RBC) [Ratio] 13.2 % Normal 11.6-14.6 [facility] Comment on above: Performed By: #### L 506.1001, L500.4100, L100.0100, L500.4050, L3300.1750, L509.3001 #### [facility] [address] [place], [address] Hematocrit (Bld) [Volume fraction] 40.7 % Normal 40-54 [facility] Comment on above: Performed By: #### L 506.1001, L500.4100, L100.0100, L500.4050, L3300.1750, L509.3001 #### [facility] [address] [place], [address] Hemoglobin (Bld) [Mass/Vol] 13.9 g/dL Normal 13.0-16.5 [facility] Comment on above: Performed By: #### L 506.1001, L500.4100, L100.0100, L500.4050, L3300.1750, L509.3001 #### [facility] [address] [place], [address] IG% 0.200 Normal 0.0-0.9 [facility] Comment on above: Result Comment: IG% - Immature Granulocytes (promyelocytes, myelocytes and metamyelocytes) > 1% indicates that a LEFT SHIFT is Present. Performed By: #### L 506.1001, L500.4100, L100.0100, L500.4050, L3300.1750, L509.3001 #### [facility] [address] [place], [address] Lymphocytes/100 WBC (Bld) 36.8 % Normal 19-41 [facility] Comment on above: Performed By: #### L 506.1001, L500.4100, L100.0100, L500.4050, L3300.1750, L509.3001 #### [facility] [address] [place], [address] MCH (RBC) [Entitic mass] 28.7 pg Normal 27.0-32.0 [facility] Comment on above: Performed By: #### L 506.1001, L500.4100, L100.0100, L500.4050, L3300.1750, L509.3001 #### [facility] [address] [place], [address] MCHC (RBC) [Mass/Vol] 34.2 g/dL Normal 32-36 [facility] Comment on above: Performed By: #### L 506.1001, L500.4100, L100.0100, L500.4050, L3300.1750, L509.3001 #### [facility] [address] [place], [address] MCV (RBC) [Entitic vol] 84.1 fL Normal 80-94 [facility] Comment on above: Performed By: #### L 506.1001, L500.4100, L100.0100, L500.4050, L3300.1750, L509.3001 #### [facility] [address] [place], [address] Monocytes/100 WBC (Bld) 7.7 % Normal 0-10 [facility] Comment on above: Performed By: #### L 506.1001, L500.4100, L100.0100, L500.4050, L3300.1750, L509.3001 #### [facility] [address] [place], [address] Neutrophils/100 WBC (Bld) 52.5 % Normal 47-70 [facility] Comment on above: Performed By: #### L 506.1001, L500.4100, L100.0100, L500.4050, L3300.1750, L509.3001 #### [facility] [address] [place], [address] Nucleated RBC (Bld) [#/Vol] 0 10*3/uL Normal 0-5 [facility] Comment on above: Performed By: #### L 506.1001, L500.4100, L100.0100, L500.4050, L3300.1750, L509.3001 #### [facility] [address] [place], [address] Platelet mean volume (Bld) [Entitic vol] 9.9 fL Normal 6.2-12.0 [facility] Comment on above: Performed By: #### L 506.1001, L500.4100, L100.0100, L500.4050, L3300.1750, L509.3001 #### [facility] [address] [place], [address] Platelets (Bld) [#/Vol] 244 10*3/uL Normal 150-450 [facility] Comment on above: Performed By: #### L 506.1001, L500.4100, L100.0100, L500.4050, L3300.1750, L509.3001 #### [facility] [address] [place], [address] RBC (Bld) [#/Vol] 4.84 10*6/uL Normal 4.6-6.2 [facility] Comment on above: Performed By: #### L 506.1001, L500.4100, L100.0100, L500.4050, L3300.1750, L509.3001 #### [facility] [address] [place], [address] RDW SD 40.7 fl Normal 35.1-43.9 [facility] Comment on above: Performed By: #### L 506.1001, L500.4100, L100.0100, L500.4050, L3300.1750, L509.3001 #### [facility] [address] [place], [address] WBC (Bld) [#/Vol] 5.6 10*3/uL Normal 4.4-11.0 [facility] Comment on above: Performed By: #### L 506.1001, L500.4100, L100.0100, L500.4050, L3300.1750, L509.3001 #### [facility] [address] [place], [address] Calculated very low density lipoprotein (VLDL) cholesterol measurementon 02-24-2025 Calculated very low density lipoprotein (VLDL) cholesterol measurement 36 mg/dL 5-40 [facility] Carbon dioxide, total [Moles /volume] in Central venous bloodon 02-24-2025 CO2 [Moles/Vol] 23.2 mmol/L 21.0-32.0 [facility] Chloride assayon 02-24-2025 Chloride [Moles/Vol] 104 mmol/L 98-108 [facility] Comprehensive Metabolic Prof ilon 02-24-2025 Albumin [Mass/Vol] 4.3 g/dL Normal 3.5-5.0 [facility] Comment on above: Performed By: #### L 506.1001, L500.4100, L100.0100, L500.4050, L3300.1750, L509.3001 #### [facility] [address] [place], [address] Albumin/Globulin [Mass ratio] 1.4 {ratio} Normal 0.9-2.4 [facility] Comment on above: Performed By: #### L 506.1001, L500.4100, L100.0100, L500.4050, L3300.1750, L509.3001 #### [facility] [address] [place], [address] ALK PHOS 76 U/L Normal 40-129 [facility] Comment on above: Performed By: #### L 506.1001, L500.4100, L100.0100, L500.4050, L3300.1750, L509.3001 #### [facility] [address] [place], [address] ALT [Catalytic activity/Vol] 27 U/L Normal <=46 [facility] Comment on above: Performed By: #### L 506.1001, L500.4100, L100.0100, L500.4050, L3300.1750, L509.3001 #### [facility] [address] [place], [address] AST [Catalytic activity/Vol] 17 U/L Normal <=37 [facility] Comment on above: Performed By: #### L 506.1001, L500.4100, L100.0100, L500.4050, L3300.1750, L509.3001 #### [facility] [address] [place], [address] Bilirubin [Mass/Vol] 0.46 mg/dL Normal 0.00-1.30 [facility] Comment on above: Performed By: #### L 506.1001, L500.4100, L100.0100, L500.4050, L3300.1750, L509.3001 #### [facility] [address] [place], [address] BUN/CRE 16.1 RATIO Normal 10-20 [facility] Comment on above: Performed By: #### L 506.1001, L500.4100, L100.0100, L500.4050, L3300.1750, L509.3001 #### [facility] [address] [place], [address] Calcium [Mass/Vol] 9.2 mg/dL Normal 7.6-11.0 [facility] Comment on above: Performed By: #### L 506.1001, L500.4100, L100.0100, L500.4050, L3300.1750, L509.3001 #### [facility] [address] [place], [address] Chloride [Moles/Vol] 104 mmol/L Normal 98-108 [facility] Comment on above: Performed By: #### L 506.1001, L500.4100, L100.0100, L500.4050, L3300.1750, L509.3001 #### [facility] [address] [place], [address] CO2 [Moles/Vol] 23.2 mmol/L Normal 21.0-32.0 [facility] Comment on above: Performed By: #### L 506.1001, L500.4100, L100.0100, L500.4050, L3300.1750, L509.3001 #### [facility] [address] [place], [address] Creatinine [Mass/Vol] 0.84 mg/dL Normal 0.70-1.20 [facility] Comment on above: Performed By: #### L 506.1001, L500.4100, L100.0100, L500.4050, L3300.1750, L509.3001 #### [facility] [address] [place], [address] GAP 11 Normal 5-15 [facility] Comment on above: Performed By: #### L 506.1001, L500.4100, L100.0100, L500.4050, L3300.1750, L509.3001 #### [facility] [address] [place], [address] GFR/1.73 sq M.predicted among non-blacks MDRD (S/P/Bld) [Vol rate/Area] 117 mL/min/{1.73_m2} Normal >60 [facility] Comment on above: Result Comment: mL/m in/1.73m2 CKD-EPI Creatinine Equation (2020) Performed By: #### L 506.1001, L500.4100, L100.0100, L500.4050, L3300.1750, L509.3001 #### [facility] [address] [place], [address] Globulin (S) [Mass/Vol] 3.0 g/dL Normal 2.2-4.2 [facility] Comment on above: Performed By: #### L 506.1001, L500.4100, L100.0100, L500.4050, L3300.1750, L509.3001 #### [facility] [address] [place], [address] Glucose [Mass/Vol] 147 mg/dL High 70-99 [facility] Comment on above: Performed By: #### L 506.1001, L500.4100, L100.0100, L500.4050, L3300.1750, L509.3001 #### [facility] [address] [place], [address] Potassium [Moles/Vol] 4.3 mmol/L Normal 3.3-5.1 [facility] Comment on above: Performed By: #### L 506.1001, L500.4100, L100.0100, L500.4050, L3300.1750, L509.3001 #### [facility] [address] [place], [address] Sodium [Moles/Vol] 138 mmol/L Normal 133-145 [facility] Comment on above: Performed By: #### L 506.1001, L500.4100, L100.0100, L500.4050, L3300.1750, L509.3001 #### [facility] [address] [place], [address] T PROT 7.4 g/dL Normal 5.9-8.4 [facility] Comment on above: Performed By: #### L 506.1001, L500.4100, L100.0100, L500.4050, L3300.1750, L509.3001 #### [facility] [address] [place], [address] Urea nitrogen [Mass/Vol] 14 mg/dL Normal 4-19 [facility] Comment on above: Performed By: #### L 506.1001, L500.4100, L100.0100, L500.4050, L3300.1750, L509.3001 #### [facility] [address] [place], [address] Eosinophil percentageon 05- Eosinophils/100 WBC (Bld) 2.3 % 0-5 [facility] Erythrocyte distribution wid th ratioon 02-24-2025 Erythrocyte distribution width (RBC) [Ratio] 13.2 % 11.6-14.6 [facility] Erythrocyte distribution wid th standard deviationon 02-24-2025 Erythrocyte distribution width (RBC) [Ratio] 40.7 fl 35.1-43.9 [facility] Estradiolon 02-24-2025 ESTRADIOL 46.5 pg/mL Normal [facility] Comment on above: Result Comment: MALE S ADULT MALE: 10-40 pg/mL PHOENIX STAGES MEAN AGE REFERENCE RANGES Stage I(>14 days and prepubertal) 7.1 years Undetectable-13 pg/mL Stage II 12.1 years Undetectable-16 pg/mL Stage III 13.6 years Undetectable-26 pg/mL Stage IV 15.1 years Undetectable-38 pg/mL Stage V 18 years 10-40 pg/mL Puberty onset (transition from Phoenix stage I to Phoenix Stage II) occurs for boys at a median age of 11.5 (+/- 2) years. For boys, there is no proven relationship between puberty onset and body weight or ethnic origin. Progression through Phoenix stages is variable. Phoenix stage V (adult) should be reached by age 18. Performed By: #### L 100.0100, L500.4050, L503.6620, L501.9520 #### [facility] [address] [place], [place], [id number] Glomerular filtration rate ( GFR) estimation/1.73 sq m using serum, plasma, or whole bon 02-24-2025 GFR/1.73 sq M.predicted among non-blacks MDRD (S/P/Bld) [Vol rate/Area] 117 mL/min/{1.73_m2} >60 [facility] Comment on above: mL/min/1.73m2 CKD-EP I Creatinine Equation (2020) Hematocrit Auto (Bld) [Volum e fraction]on 02-24-2025 Hematocrit (Bld) [Volume fraction] 40.7 % 40-54 [facility] Hemoglobin measurementon Hemoglobin (Bld) [Mass/Vol] 13.9 g/dL 13.0-16.5 [facility] Immature granulocytes/100 WB C Auto (Bld)on 02-24-2025 Immature granulocytes/100 WBC (Bld) 0.200 % 0.0-0.9 [facility] Comment on above: IG% - Immature Granu locytes (promyelocytes, myelocytes and metamyelocytes) > 1% indicates that a LEFT SHIFT is Present. L509.3001on 02-24-2025 Testosterone [Mass/Vol] 376.00 ng/dL Normal 300-1080 [facility] Comment on above: Performed By: #### L 100.0100, L500.4050, L503.6620, L501.9520 #### [facility] [address] [place], [place], [phone] LDL calc ser/plason 02-25-20 25 Cholesterol in LDL [Mass/Vol] 80 mg/dL [facility] Comment on above: Hyiqhzoidx=092-488 m g/dL & Higher Tlvt=029 mg/dL or greater Laboratory - Chemistry and C hemistry - challengeon 02-24-2025 AST [Catalytic activity/Vol] 17 U/L <38 [facility] Testosterone [Mass/Vol] 376.00 ng/dL 300-1080 [facility] Lipid Profileon 02-24-2025 CHOL:HDL 3.70 Normal [facility] Comment on above: Performed By: #### L 506.1001, L500.4100, L100.0100, L500.4050, L3300.1750, L509.3001 #### [facility] [address] [place], [address] Cholesterol [Mass/Vol] 160 mg/dL Normal <=200 [facility] Comment on above: Result Comment: Chol esterol level, Desirable <200 mg/dL Borderline high cholesterol 200-239 mg/dL High cholesterol >=240 mg/dL Recommendations of the NCEP Adult Treatment Panel for the following risk-cutoff thresholds for the [place] population. Performed By: #### L 506.1001, L500.4100, L100.0100, L500.4050, L3300.1750, L509.3001 #### [facility] [address] [place], [address] Cholesterol in HDL [Mass/Vol] 43 mg/dL Normal [facility] Comment on above: Result Comment: Tomasa onal Cholesterol Education Program (NCEP) guidelines: <40 mg/dL: Low HDL-cholesterol (major risk factor for CHD) >= 60 mg/dL: High HDL-cholesterol (negative risk factor for CHD) HDL-cholesterol is affected by a number of factors, e.g. smoking, exercise, hormones, sex and age. Performed By: #### L 506.1001, L500.4100, L100.0100, L500.4050, L3300.1750, L509.3001 #### [facility] [address] [place], [address] Cholesterol in LDL [Mass/Vol] 80 mg/dL Normal [facility] Comment on above: Result Comment: Bord xaxlxw=064-207 mg/dL Higher Waft=187 mg/dL or greater Performed By: #### L 506.1001, L500.4100, L100.0100, L500.4050, L3300.1750, L509.3001 #### [facility] [address] [place], [place], [phone] (020) Cholesterol in VLDL [Mass/Vol] 36 mg/dL Normal 5-40 [facility] Comment on above: Performed By: #### L 506.1001, L500.4100, L100.0100, L500.4050, L3300.1750, L509.3001 #### [facility] [address] [place], [place], [phone] (679) Triglyceride [Mass/Vol] 182 mg/dL Normal [facility] Comment on above: Result Comment: The drugs N-Acetylcysteine and Metamizole may falsely depress this assay. Normal range: <150 mg/dL Borderline High: 150-199 mg/dL High: 200-499 mg/dL Very High: >500 mg/dL Performed By: #### L 506.1001, L500.4100, L100.0100, L500.4050, L3300.1750, L509.3001 #### [facility] [address] [place], [place], [id number] MCV (mean corpuscular volume ) determinationon 02-24-2025 MCV (RBC) [Entitic vol] 84.1 fL 80-94 [facility] Mean corpuscular hemoglobin (MCH) determinationon 02-24-2025 MCH (RBC) [Entitic mass] 28.7 pg 27.0-32.0 [facility] Mean corpuscular hemoglobin concentration (MCHC) determinationon 02-24-2025 MCHC (RBC) [Mass/Vol] 34.2 g/dL 32-36 [facility] Mean platelet volume determi nationon 02-24-2025 Platelet mean volume (Bld) [Entitic vol] 9.9 fL 6.2-12.0 [facility] Monocyte percentageon 2024 Monocytes/100 WBC (Bld) 7.7 % 0-10 [facility] Neutrophil percentageon 02-10 Neutrophils/100 WBC (Bld) 52.5 % 47-70 [facility] Nucleated red blood cell per centageon 02-24-2025 Nucleated RBC/100 WBC (Bld) [Ratio] 0 % 0-5 [facility] Platelet counton 02-24-2025 Platelets (Bld) [#/Vol] 244 10*3/uL 150-450 [facility] Potassium measurement (mass/ volume)on 02-24-2025 Potassium (Unsp spec) [Mass/Vol] 4.3 mmol/L 3.3-5.1 [facility] RBC Auto (Bld) [#/Vol]on RBC (Bld) [#/Vol] 4.84 10*6/uL 4.6-6.2 [facility] Screening total cholesterol/ high density lipoprotein (HDL) cholesterol ratioon 02-24-2025 Cholesterol.total/Chol esterol in HDL [Mass ratio] 3.70 {ratio} [facility] Serum creatinine measurement (mass/volume)on 02-24-2025 Creatinine [Mass/Vol] 0.84 mg/dL 0.70-1.20 [facility] Serum globulin measurementon 02-24-2025 Globulin (S) [Mass/Vol] 3.0 g/dL 2.2-4.2 [facility] Serum glucose measurement (m ass/volume)on 02-24-2025 Glucose [Mass/Vol] 147 mg/dL High 70-99 [facility] Serum or plasma alanine amharaj otransferase (ALT) measurementon 02-24-2025 ALT [Catalytic activity/Vol] 27 U/L <47 [facility] Serum or plasma albumin kirk urement (mass/volume)on 02-24-2025 Albumin [Mass/Vol] 4.3 g/dL 3.5-5.0 [facility] Serum or plasma albumin/glob ulin mass ratioon 02-24-2025 Albumin/Globulin [Mass ratio] 1.4 {ratio} 0.9-2.4 [facility] Serum or plasma alkaline beny sphatase measurementon 02-24-2025 ALP [Catalytic activity/Vol] 76 U/L 40-129 [facility] Serum or plasma calcium kirk urement (mass/volume)on 02-24-2025 Calcium [Mass/Vol] 9.2 mg/dL 7.6-11.0 [facility] Serum or plasma cholesterol in HDL measurement (mass/volume)on 02-24-2025 Cholesterol in HDL [Mass/Vol] 43 mg/dL >40 [facility] Comment on above: National Cholesterol Education Program (NCEP) guidelines:<40 mg/dL: Low HDL-cholesterol (major risk factor for CHD)>= 60 mg/dL: High HDL-cholesterol (negative risk factor for CHD)HDL-cholesterol is affected by a number of factors, e.g. smoking, exercise, hormones, sex and age. Serum or plasma cholesterol measurement (mass/volume)on 02-24-2025 Cholesterol [Mass/Vol] 160 mg/dL <201 [facility] Comment on above: Cholesterol level, D esirable <200 mg/dLBorderline high cholesterol 200-239 mg/dLHigh cholesterol >=240 mg/dLRecommendations of the NCEP Adult Treatment Panel for the following risk-cutoff thresholds for the [place] population. Serum or plasma estradiol me asurement after follitropin dose (mass/volume)on 02-24-2025 E2 post dose follitropin [Mass/Vol] 46.5 pg/mL [facility] Comment on above: MALES ADULT MALE: 10 -40 pg/mL PHOENIX STAGES MEAN AGE REFERENCE RANGES Stage I(>14 days and prepubertal) 7.1 years Undetectable-13 pg/mL Stage II 12.1 years Undetectable-16 pg/mL Stage III 13.6 years Undetectable-26 pg/mL Stage IV 15.1 years Undetectable-38 pg/mL Stage V 18 years 10-40 pg/mL Puberty onset (transition from Phoenix stage I to Phoenix Stage II) occurs for boys at a median age of 11.5 (+/- 2) years. For boys, there is no proven relationship between puberty onset and body weight or ethnic origin. Progression through Phoenix stages is variable. Phoenix stage V (adult) should be reached by age 18. Serum or plasma urea nitroge n measurement (mass/volume)on 02-24-2025 Urea nitrogen [Mass/Vol] 14 mg/dL 4-19 [facility] Sodium levelon 02-24-2025 Sodium [Moles/Vol] 138 mmol/L 133-145 [facility] Total proteinon 02-24-2025 Protein [Mass/Vol] 7.4 g/dL 5.9-8.4 [facility] Triglycerides measurementon 02-24-2025 Triglyceride [Mass/Vol] 182 mg/dL <199 [facility] Comment on above: The drugs N-Acetylcy steine and Metamizole may falsely depress this assay. Normal range: <150 mg/dLBorderline High: 150-199 mg/dLHigh: 200-499 mg/dLVery High: >500 mg/dL Vitamin D,25 Hydroxyon 02-24 Vitamin D 25-OH 11.9 ng/mL Low 30-100 [facility] Comment on above: Result Comment: Pham min D Status Deficiency: <20 ng/mL (50nmol/L) Insufficiency: 20-30 ng/mL (50-75 nmol/L) Sufficiency: 30-100 ng/mL (75-250 nmol/L) Toxicity: >100 ng/mL (>250 nmol/L) Performed By: #### L 100.0100, L500.4050, L503.6620, L501.9520 #### [facility] [address] [place], [address] White blood cell (WBC) count on 02-24-2025 WBC (Bld) [#/Vol] 5.6 10*3/uL 4.4-11.0 [facility] 36on 01-24-2025 36 Pt arrived late to appt will need assessed Please inform of moving forward Thanks Normal [facility] Office Visiton 01-24-2025 Follow-up visit [id number] Bishop Canales 1990 M Date Provider Department Center 01/24/2025 [id number] Family History Problem Relation Age of Onset Seizures Mother Suicide Attempts Mother Bipolar disorder Father Schizophrenia Father Alcohol abuse Father Muscular dystrophy Brother Other Brother Muscular dystrophy Brother Comments: at age 22 after requesting t be taken off life support Family Status - Relation Status Age at Mother Father Brother Alive Brother Level of Service:86433 NE OFFICE/OUTPATIENT ESTABLISHED MOD MDM 30 MIN Reason for Visit and Comments: Follow-up [[id number]] - Pt in office today for follow up HRT, would like to discuss development on breast Normal [facility] Progress Noteon 01-24-2025 Progress Note [facility] [address], [place] [address] 01/24/2025 ASSESSMENT AND PLAN 1. Hormone replacement therapy 2. Medication monitoring encounter 3. Gender dysphoria in adult Tolerating estrogen, spironolactone and progesterone Patient is seeing positive results from medication & is getting expected/desired feminization changes. - discussed trying alternative bra types +/- padding to get shape they want Continue with HRT- Will refill/adjust medication based on labwork,. Refills sent after labs return - Patient continues to meet criteria for use of gender-affirming hormone therapy - Continuing gender-affirming hormone therapy is medically necessary and withholding or terminating its use would cause harm to the patient Labs ordered: - CBC auto differential - Comprehensive metabolic panel - Estradiol - Testosterone - Lipid panel 4. Poor compliance- working on better compliance now has case therapist that brings them to appointment 5. H/O vitamin D deficiency Checking levels will start high dose weekly supplement if low - Vitamin D Deficiency Screening (Vit D 25) Contact office with questions or concerns in the interim. On this date, 01/24/2025, if appropriate I personally reviewed previous notes/test results; spent time face to face with the patient discussing the diagnosis and importance of compliance with the treatment plan for HRT plus acute and chronic medical concerns, answering questions, providing patient education; and documenting on the day of the visit. Return to clinic in 4 months or sooner p.r.n. SUBJECTIVE HPI: -Ellie Canales is a 34 y.o. adult here for follow up- hormone replacement therapy. Identifies as: non binary and pronouns are they/them Assigned male sex at 1) HRT HARITHA: 10/18/2024 Medical transition Started on hormones: 2 years ago, 12/10/22 - regiment: roland 200mg prescribed but patient only taking 50mg dose and estradiol 4 mg daily Side effects: none, tolerating well much better compliance with daily oral. Current transition concerns: wanting tapia breasts, not interested in returning on Progesterone. Keeping on lower dose of roland to keep genital sexual function- important Changes seen to date: softer skin, body hair growing in thinner and longer facial hair growth, breast growth continues, mood ok, body contour changes. Other transition goals/progress Surgical transition: not interested in any surgeries at this time Legal transition: is interested financial barrier. [facility] Voice transition: unable to go to visits -transportation issues. Going to work on it at home. Social transition- Falling out with family- were not supportive. Does have case workers & therapists that are supportive they consider them a support network Social/Interim Hx: - chronic mental health conditions- managed by psychiatry- stable on current medications - Fishing Worker merlyn present today and was their ride. - barriers to compliance-transport ation issues ROS Review of Systems Constitutional: Negative for fatigue and fever. Eyes: Negative for visual disturbance. Respiratory: Negative for shortness of breath. Cardiovascular: Negative for chest pain and palpitations. Gastrointestinal: Negative for nausea. Skin: Negative for rash. Neurological: Negative for dizziness and headaches. Psychiatric/Behavior al: +gender dysphoria Past Medical History: Diagnosis Date ADHD (attention deficit hyperactivity disorder) 05/04/2020 Anxiety Auditory hallucinations 05/21/2011 Bipolar disorder, unspecified (HCC) 05/04/2020 Obesity Passive suicidal ideations per patient report n 2019. No plan, too chicken to . Schizophrenia (HCC) Tobacco use disorder Current Outpatient Medications: buPROPion XL (Wellbutrin XL) 300 MG 24 hr tablet, , Disp: , Rfl: busPIRone (Buspar) 15 MG tablet, , Disp: , Rfl: estradiol (Estrace) 2 MG tablet, Take 2 tablets (4 mg) by mouth daily., Disp: 180 tablet, Rfl: 1 FLUoxetine (PROzac) 40 MG capsule, , Disp: , Rfl: spironolactone (Aldactone) 100 MG tablet, Take 2 tablets (200 mg) by mouth daily. (Patient taking differently: Take 50 mg by mouth daily.), Disp: 180 tablet, Rfl: 1 traZODone (Desyrel) 100 MG tablet, Take 200 mg by mouth., Disp: , Rfl: Social History Tobacco Use Smoking status: Former Current packs/day: 0.00 Average packs/day: 0.8 packs/day for 14.0 years (11.2 ttl pk-yrs) Types: Cigarettes Start date: 2003 Quit date: 2017 Years since quittin.2 Smokeless tobacco: Never Tobacco comments: Reports he started smoking at age 13 and quit at 17, but information differs by patient self-reporting. Substance Use Topics Alcohol use: Not Currently Comment: reports being social drinker, heavy drinker and binge drinker at different times Past Surgical History: Procedure Laterality Date WISDOM TOOTH EXTRACTION (more content not included)... Normal [facility] Office Visiton 10-18-2024 Follow-up visit [id number] Bishop Canales 1990 M Date Provider Department Center 10/18/2024 [id number] [facility] None Family History Problem Relation Age of Onset Seizures Mother Suicide Attempts Mother Bipolar disorder Father Schizophrenia Father Alcohol abuse Father Muscular dystrophy Brother Other Brother Muscular dystrophy Brother Comments: at age 22 after requesting t be taken off life support Family Status - Relation Status Age at Mother Father Brother Alive Brother Level of Service:[id number] NE OFFICE/OUTPATIENT ESTABLISHED MOD MDM 30 MIN Reason for Visit and Comments: Follow-up [[id number]] - Pt. In office for HRT follow up, Pt. Would like to discuss stopping progesterone Normal [facility] Progress Noteon 10-18-2024 Progress Note [facility] [address] [place] [address] 10/18/2024 ASSESSMENT AND PLAN 1. Hormone replacement therapy 2. Medication monitoring encounter 3. Gender dysphoria in adult Tolerating estrogen, spironolactone and progesterone Patient is seeing positive results from medication & is getting expected/desired feminization changes. - Discussed open to increasing estradiol and stopping progesterone (will do every other day with pills have left ~2 weeks). Prefers pills>injections Continue with HRT dose- Will refill/adjust medication based on labwork,. Refills sent after labs return - Patient continues to meet criteria for use of gender-affirming hormone therapy - Continuing gender-affirming hormone therapy is medically necessary and withholding or terminating its use would cause harm to the patient Labs ordered: - CBC auto differential - Comprehensive metabolic panel - Estradiol - Testosterone - Estrone Contact office with questions or concerns in the interim. On this date, 10/18/2024, time spent includes reviewing previous notes/test results; spending time face to face with the patient discussing the diagnosis and importance of compliance with the treatment plan for HRT plus acute and chronic medical concerns, answering questions, providing patient education; and documenting on the day of the visit. Return to clinic in 6 months or sooner p.r.n. SUBJECTIVE HPI: -Ellie Canaels is a 34 y.o. adult here for follow up- gender-affirming therapy. Identifies as: non binary and pronouns are they/them Assigned male sex at 1) HRT HARITHA: 07/06/2024 Medical transition Started on hormones: >1 1/2 years ago, 12/10/22 - regiment: roland 100mg dose and estradiol 2 mg daily and progesterone 100mg Side effects:none, tolerating well much better compliance with daily oral. Current transition concerns: Wanting to stop progesterone (focus on weight loss) - still important to keep genital sexual function prefers lower dose of roland Changes seen to date: softer skin, body hair growing in thinner and longer facial hair growth, breast growth continues, mood ok, body contour changes. Other transition goals/progress Surgical transition: not interested in any surgeries at this time Legal transition: is interested to do this month if have money. [facility] [place] [facility] Voice transition: transportation issues. Going to work on it at home. Social transition- Falling out with family- were not supportive. Does have case workers & therapists that are supportive they consider them a support network Social/Interim Hx: - chronic mental health conditions- managed by psychiatry- stable on current medications - Fishing Worker merlyn present today and was their ride. - No phone but has internet currently ROS Review of Systems Constitutional: Negative for fatigue and fever. Eyes: Negative for visual disturbance. Respiratory: Negative for shortness of breath. Cardiovascular: Negative for chest pain and palpitations. Gastrointestinal: Negative for nausea. Skin: Negative for rash. Neurological: Negative for dizziness and headaches. Psychiatric/Behavior al: +gender dysphoria Past Medical History: Diagnosis Date ADHD (attention deficit hyperactivity disorder) 05/04/2020 Anxiety Auditory hallucinations 05/21/2011 Bipolar disorder, unspecified (HCC) 05/04/2020 Obesity Passive suicidal ideations per patient report n 2019. No plan, too chicken to . Schizophrenia (HCC) Tobacco use disorder Current Outpatient Medications: buPROPion XL (Wellbutrin XL) 300 MG 24 hr tablet, , Disp: , Rfl: busPIRone (Buspar) 15 MG tablet, , Disp: , Rfl: estradiol (Estrace) 2 MG tablet, Take 1 tablet (2 mg) by mouth daily., Disp: 90 tablet, Rfl: 1 FLUoxetine (PROzac) 40 MG capsule, , Disp: , Rfl: spironolactone (Aldactone) 100 MG tablet, Take 1 tablet (100 mg) by mouth daily., Disp: 90 tablet, Rfl: 1 traZODone (Desyrel) 100 MG tablet, Take 200 mg by mouth., Disp: , Rfl: Social History Tobacco Use Smoking status: Former Current packs/day: 0.00 Average packs/day: 0.8 packs/day for 14.0 years (11.2 ttl pk-yrs) Types: Cigarettes Start date: 2003 Quit date: 2017 Years since quittin.0 Smokeless tobacco: Never Tobacco comments: Reports he started smoking at age 13 and quit at 17, but information differs by patient self-reporting. Substance Use Topics Alcohol use: Not Currently Comment: reports being social drinker, heavy drinker and binge drinker at different times Past Surgical History: Procedure Laterality Date WISDOM TOOTH EXTRACTION Bilateral x4 OBJECTIVE Vitals: 10/18/24 0953 BP: 118/60 Pulse: 71 SpO2: 98% Weight: 264 lb (120 kg) Physical Exam Vitals and nursing note reviewed. Constitutional: General: Ember is not in acute distress. Appearance: Normal appearance. HENT: Head: Atraumatic (more content not included)... Normal [facility] Office Visiton 07-06-2024 Follow-up visit [id number] Bishop Canales 1990 M Date Provider Department Center 07/06/2024 [id number] [facility] None Family History Problem Relation Age of Onset Seizures Mother Suicide Attempts Mother Bipolar disorder Father Schizophrenia Father Alcohol abuse Father Muscular dystrophy Brother Other Brother Muscular dystrophy Brother Comments: at age 22 after requesting t be taken off life support Family Status - Relation Status Age at Mother Father Brother Alive Brother Level of Service:06642 NE OFFICE/OUTPATIENT ESTABLISHED MOD MDM 30 MIN Reason for Visit and Comments: Follow-up [045272] - Pt. In office today for follow up, Pt. Declining flu vaccine Normal [facility] Progress Noteon 07-06-2024 Progress Note [facility] [address], [place] [address] 07/06/2024 ASSESSMENT AND PLAN 1. Hormone replacement therapy 2. Medication monitoring encounter 3. Gender dysphoria in adult Tolerating estrogen, spironolactone, progesterone when taking. Wanting to get back on HRT. Will get baseline labs and start at lower levels and estradiol pills Patient is seeing positive results from medication & is getting expected/desired feminization changes when taking - Patient continues to meet criteria for use of gender-affirming hormone therapy - Continuing gender-affirming hormone therapy is medically necessary and withholding or terminating its use would cause harm to the patient Labs ordered: - CBC auto differential - Comprehensive metabolic panel - Lipid panel 4. Poor compliance-encourage better compliance with follow up, Is aware unable to get refills if do not attend regular medication monitoring visits. Will utilize social media editor (present) for rides and plan on getting phone back on soon. Contact office with questions or concerns in the interim. Return to clinic in 3 months or sooner p.r.n. SUBJECTIVE HPI: -Ellie Canales is a 33 y.o. adult here for follow up- gender-affirming therapy. Identifies as: non binary and pronouns are they/them Assigned male sex at 1) HRT HARITHA: 10/02/2023 (compliance issues with follow up no show x4 reschedule x2 ) Medical transition Started on hormones: >1 year, 12/10/22 - regiment: roland 100mg dose and estradiol valerate 20mg/ml 6mg weekly and progesterone 100mg -last injection: 6 months ago Side effects:none, tolerating well added progesterone last visit Current transition concerns: Wanting to restart HRT- still important to keep genital sexual function prefers lower dose of roland Changes seen to date: softer skin, body hair growing in thinner, breast growth continues, mood ok, body contour changes. -since off Facial hair growing back quicker and body countor changes Other transition goals/progress Surgical transition: not interested in any surgeries at this time. More bottom dysphoria. May be interested in tracheal shave in future Legal transition: is interested but has not started. [facility] Voice transition: trying to connect with speech referral placed earlier x2- overall waiting a while Social transition- Falling out with family- were not supportive. Does have case workers & therapists that are supportive they consider them a support network Social/Interim Hx: - Limited exercise other that walking for transportation - has been more experimental with sexuality personally- is on 2 year celibacy journey working on self first - chronic mental health conditions- managed by psychiatry- stable on current medications - Fishing Worker merlyn present today and was their ride. No phone or internet currently ROS Review of Systems Constitutional: Negative for fatigue and fever. Eyes: Negative for visual disturbance. Respiratory: Negative for shortness of breath. Cardiovascular: Negative for chest pain and palpitations. Gastrointestinal: Negative for nausea. Skin: Negative for rash. Neurological: Negative for dizziness and headaches. Psychiatric/Behavior al: Positive for dysphoric mood. The patient is nervous/anxious. +gender dysphoria Past Medical History: Diagnosis Date ADHD (attention deficit hyperactivity disorder) 05/04/2020 Anxiety Auditory hallucinations 05/21/2011 Bipolar disorder, unspecified (HCC) 05/04/2020 Obesity Passive suicidal ideations per patient report n 2019. No plan, too chicken to . Schizophrenia (HCC) Tobacco use disorder Current Outpatient Medications: buPROPion XL (Wellbutrin XL) 300 MG 24 hr tablet, , Disp: , Rfl: busPIRone (Buspar) 15 MG tablet, , Disp: , Rfl: Needle, Disp, 18G X 1 misc, Use with weekly injection to draw up medication, Disp: 20 each, Rfl: 2 Needle, Disp, 23G X 1 misc, Use to administer weekly injection, Disp: 20 each, Rfl: 2 Poston & Syringes (Easy Touch Syringe Barrel 1ml) misc, Use for weekly injection, Disp: 20 each, Rfl: 2 traZODone (Desyrel) 100 MG tablet, Take 200 mg by mouth., Disp: , Rfl: estradiol valerate (Delestrogen) 20 MG/ML injection, Inject 0.3 mL (6 mg) into the shoulder, thigh, or buttocks 1 (one) time per week. (Patient not taking: Reported on 07/06/2024), Disp: 5 mL, Rfl: 1 FLUoxetine (PROzac) 40 MG capsule, , Disp: , Rfl: spironolactone (Aldactone) 100 MG tablet, Take 1 tablet (100 mg) by mouth daily. (Patient not taking: Reported on 07/06/2024), Disp: 90 tablet, Rfl: 1 Social History Tobacco Use Smoking status: Former Current packs/day: 0.00 Average packs/day: 0.8 packs/day for 14.0 years (11.2 ttl pk-yrs) Types: Cigarettes Start date: 2003 Quit date: 2017 Years since quittin.7 Smokeless tobacco: Never Tobacco comments: Reports he start (more content not included)... Normal [facility] BNP,B-Type NATRIURETIC PEPTI Sung 06-16-2024 Natriuretic peptide B (Bld) [Mass/Vol] 112.3 pg/mL High 0-100 [facility] Comment on above: Performed By: #### L 100.0100, L500.4050, L503.6620, L501.9520 #### [facility] [address] [place], [address] CBC W/Diff, Automatedon Absolute Lymph 1.36 X10 3/uL Normal 0.83-4.51 [facility] Comment on above: Performed By: #### L 100.0100, L500.4050, L503.6620, L501.9520 #### [facility] [address] [place], [address] Absolute Neut 3.7 X10 3/uL Normal 2.0-7.7 [facility] Comment on above: Performed By: #### L 100.0100, L500.4050, L503.6620, L501.9520 #### [facility] [address] [place], [address] Basophils/100 WBC (Bld) 0.4 % Normal 0-1 [facility] Comment on above: Performed By: #### L 100.0100, L500.4050, L503.6620, L501.9520 #### [facility] [address] [place], [address] Eosinophils/100 WBC (Bld) 1.8 % Normal 0-5 [facility] Comment on above: Performed By: #### L 100.0100, L500.4050, L503.6620, L501.9520 #### [facility] [address] [place], [address] Erythrocyte distribution width (RBC) [Ratio] 13.6 % Normal 11.6-14.6 [facility] Comment on above: Performed By: #### L 100.0100, L500.4050, L503.6620, L501.9520 #### [facility] [address] [place], [address] Hematocrit (Bld) [Volume fraction] 33.6 % Low 40-54 [facility] Comment on above: Performed By: #### L 100.0100, L500.4050, L503.6620, L501.9520 #### [facility] [address] [place], [address] Hemoglobin (Bld) [Mass/Vol] 11.0 g/dL Low 13.0-16.5 [facility] Comment on above: Performed By: #### L 100.0100, L500.4050, L503.6620, L501.9520 #### [facility] [address] [place], [address] IG% 0.400 Normal 0.0-0.9 [facility] Comment on above: Result Comment: IG% - Immature Granulocytes (promyelocytes, myelocytes and metamyelocytes) > 1% indicates that a LEFT SHIFT is Present. Performed By: #### L 100.0100, L500.4050, L503.6620, L501.9520 #### [facility] [address] [place], [address] Lymphocytes/100 WBC (Bld) 24.3 % Normal 19-41 [facility] Comment on above: Performed By: #### L 100.0100, L500.4050, L503.6620, L501.9520 #### [facility] [address] [place], [address] MCH (RBC) [Entitic mass] 27.7 pg Normal 27.0-32.0 [facility] Comment on above: Performed By: #### L 100.0100, L500.4050, L503.6620, L501.9520 #### [facility] [address] [place], [address] MCHC (RBC) [Mass/Vol] 32.7 g/dL Normal 32-36 [facility] Comment on above: Performed By: #### L 100.0100, L500.4050, L503.6620, L501.9520 #### [facility] [address] [place], [address] MCV (RBC) [Entitic vol] 84.6 fL Normal 80-94 [facility] Comment on above: Performed By: #### L 100.0100, L500.4050, L503.6620, L501.9520 #### [facility] [address] [place], [address] Monocytes/100 WBC (Bld) 6.4 % Normal 0-10 [facility] Comment on above: Performed By: #### L 100.0100, L500.4050, L503.6620, L501.9520 #### [facility] [address] [place], [address] Neutrophils/100 WBC (Bld) 66.7 % Normal 47-70 [facility] Comment on above: Performed By: #### L 100.0100, L500.4050, L503.6620, L501.9520 #### [facility] [address] [place], [address] Nucleated RBC (Bld) [#/Vol] 0 10*3/uL Normal 0-5 [facility] Comment on above: Performed By: #### L 100.0100, L500.4050, L503.6620, L501.9520 #### [facility] [address] [place], [address] Platelet mean volume (Bld) [Entitic vol] 10.1 fL Normal 6.2-12.0 [facility] Comment on above: Performed By: #### L 100.0100, L500.4050, L503.6620, L501.9520 #### [facility] [address] [place], [address] Platelets (Bld) [#/Vol] 225 10*3/uL Normal 150-450 [facility] Comment on above: Performed By: #### L 100.0100, L500.4050, L503.6620, L501.9520 #### [facility] [address] [place], [address] RBC (Bld) [#/Vol] 3.97 10*6/uL Low 4.6-6.2 [facility] Comment on above: Performed By: #### L 100.0100, L500.4050, L503.6620, L501.9520 #### [facility] [address] [place], [address] RDW SD 42.4 fl Normal 35.1-43.9 [facility] Comment on above: Performed By: #### L 100.0100, L500.4050, L503.6620, L501.9520 #### [facility] [address] [place], [address] WBC (Bld) [#/Vol] 5.6 10*3/uL Normal 4.4-11.0 [facility] Comment on above: Performed By: #### L 100.0100, L500.4050, L503.6620, L501.9520 #### [facility] [address] [place], [address] Comprehensive Metabolic Prof ilon 06-16-2024 Albumin [Mass/Vol] 3.2 g/dL Normal 3.2-5.0 [facility] Comment on above: Performed By: #### L 100.0100, L500.4050, L503.6620, L501.9520 #### [facility] [address] [place], [address] Albumin/Globulin [Mass ratio] 1.0 {ratio} Normal 0.9-2.4 [facility] Comment on above: Performed By: #### L 100.0100, L500.4050, L503.6620, L501.9520 #### [facility] [address] [place], [address] ALK P 62 U/L Normal 45-117 [facility] Comment on above: Performed By: #### L 100.0100, L500.4050, L503.6620, L501.9520 #### [facility] [address] [place], [address] ALT [Catalytic activity/Vol] 36 U/L Normal 16-61 [facility] Comment on above: Performed By: #### L 100.0100, L500.4050, L503.6620, L501.9520 #### [facility] [address] [place], [address] AST [Catalytic activity/Vol] 16 U/L Normal 15-37 [facility] Comment on above: Performed By: #### L 100.0100, L500.4050, L503.6620, L501.9520 #### [facility] [address] [place], [address] Bilirubin [Mass/Vol] 0.60 mg/dL Normal 0.20-1.00 [facility] Comment on above: Result Comment: For patients on eltrombopag therapy, use of Dimension [place] TBIL is not recommended. Performed By: #### L 100.0100, L500.4050, L503.6620, L501.9520 #### [facility] [address] [place], [address] BUN/CRE 3.0 RATIO Low 10-20 [facility] Comment on above: Performed By: #### L 100.0100, L500.4050, L503.6620, L501.9520 #### [facility] [address] [place], [address] CA,Total 9.1 mg/dL Normal 8.5-10.1 [facility] Comment on above: Performed By: #### L 100.0100, L500.4050, L503.6620, L501.9520 #### [facility] [address] [place], [address] Chloride [Moles/Vol] 108 mmol/L High 98-107 [facility] Comment on above: Performed By: #### L 100.0100, L500.4050, L503.6620, L501.9520 #### [facility] [address] [place], [address] CO2 [Moles/Vol] 26.0 mmol/L Normal 21.0-32.0 [facility] Comment on above: Performed By: #### L 100.0100, L500.4050, L503.6620, L501.9520 #### [facility] [address] [place], [address] Creatinine [Mass/Vol] 0.67 mg/dL Low 0.70-1.30 [facility] Comment on above: Result Comment: The validity of the calculated GFR GFRAA in patients over 70 years has not been determined. Clinical correlation is essential. Performed By: #### L 100.0100, L500.4050, L503.6620, L501.9520 #### [facility] [address] [place], [address] ECRCL 191.95 ml/min Normal [facility] Comment on above: Performed By: #### L 100.0100, L500.4050, L503.6620, L501.9520 #### [facility] [address] [place], [address] EST GFR - AA 176 mL/min Normal >60 [facility] Comment on above: Result Comment: Afri can [place] GFR Calc Performed By: #### L 100.0100, L500.4050, L503.6620, L501.9520 #### [facility] [address] [place], [address] GAP 5 Normal 5-15 [facility] Comment on above: Performed By: #### L 100.0100, L500.4050, L503.6620, L501.9520 #### [facility] [address] [place], [address] GFR/1.73 sq M.predicted among non-blacks MDRD (S/P/Bld) [Vol rate/Area] 145 mL/min/{1.73_m2} Normal >60 [facility] Comment on above: Result Comment: Non- GFR Calc Performed By: #### L 100.0100, L500.4050, L503.6620, L501.9520 #### [facility] [address] [place], [address] Globulin (S) [Mass/Vol] 3.2 g/dL Normal 2.2-4.2 [facility] Comment on above: Performed By: #### L 100.0100, L500.4050, L503.6620, L501.9520 #### [facility] [address] [place], [address] Glucose [Mass/Vol] 103 mg/dL Normal 74-106 [facility] Comment on above: Result Comment: Fast ing Glucose result from 100 to 125 mg/dL suggests IMPAIRED HOMEOSTASIS per A.D.A. criteria. Performed By: #### L 100.0100, L500.4050, L503.6620, L501.9520 #### [facility] [address] [place], [address] Potassium [Moles/Vol] 4.0 mmol/L Normal 3.5-5.1 [facility] Comment on above: Performed By: #### L 100.0100, L500.4050, L503.6620, L501.9520 #### [facility] [address] [place], [address] Sodium [Moles/Vol] 139 mmol/L Normal 136-145 [facility] Comment on above: Performed By: #### L 100.0100, L500.4050, L503.6620, L501.9520 #### [facility] [address] [place], [address] T PROT 6.4 g/dL Normal 6.4-8.2 [facility] Comment on above: Performed By: #### L 100.0100, L500.4050, L503.6620, L501.9520 #### [facility] [address] [place], [address] Urea nitrogen [Mass/Vol] 2 mg/dL Low 7-18 [facility] Comment on above: Performed By: #### L 100.0100, L500.4050, L503.6620, L501.9520 #### [facility] [address] [place], [address] Emergency Department Summary on 06-16-2024 Emergency Department Summary [facility] Medical Records Department [address] [place] [address] Emergency Department Summary 06/16/24 MR#: [id number] Acct: [id number] Name: BISHOP CANALES Rep #: [id number] : 1990 33 From: Roxana Mas DO PCP: Care Physician,No Primary Status:DEP ER Location: ED HPI History of Present Illness Chief Complaint: Edema Detail of Chief Complaint: Leg edema Informant: patient Narrative Narrative: Patient presents to the emergency department complaint of leg edema x 2 weeks. Patient describes normal urination. Denies recent travel or surgery. Denies any new medications. Denies chest pain or shortness of breath. Denies fever or recent illness. [facility] Medical History (Updated 06/16/24 @ 18:[address] Roxana Mas DO) Schizophrenia Anxiety Depressed Home Medications ???Medication ???Instructions ???Recorded ???Last Taken ???Type fluoxetine 40 mg capsule 40 mg PO DAILY 02/20/22 Unknown History mebendazole 100 mg chewable tablet 100 mg PO BID 3 days #6 tabs 02/20/22 Unknown Rx trazodone 100 mg tablet 100 - 200 mg PO QHS 02/20/22 Unknown History bupropion HCl 150 mg 24 hr tablet, mg PO 02/24/22 Unknown History extended release furosemide 20 mg tablet (Lasix) 20 mg PO DAILY #5 tabs 06/16/24 Unknown Rx Allergy/AdvReac Type Severity Reaction Status Date / Time amphetamine (From Adderall Allergy Chest Verified 06/16/24 15:45 XR) tightness dextroamphetamine (From Allergy Chest Verified 06/16/24 15:45 Adderall XR) tightness Social History Smoking Status: Current every day smoker tobacco type: cigarettes substance use type: does not use ROS ROS ED Review of Systems ROS Unobtainable: other Constitutional Constitutional ED: Reports lethargy; Denies chills, fever(s), sweats or weight loss Eyes Eyes: Denies blurry vision, change in vision or diplopia ENT ENT ED: Denies rhinorrhea or sore throat Cardiovascular Cardiovascular: Denies chest pain, orthopnea or racing heartbeat Respiratory/Chest Respiratory/Chest: Denies cough, dyspnea, dyspnea on exertion, orthopnea or sputum Gastrointestinal Gastrointestinal: Denies abdominal pain, diarrhea, nausea or vomiting Genitourinary Genitourinary ED: Denies dysuria, hematuria or urinary frequency Musculoskeletal Musculoskeletal: Reports other Details: Bilateral leg edema ; Denies arthralgias, back pain, myalgias or neck pain Integumentary Denies abscess, Abrasions or rash Neurologic Neurologic: Denies headache(s) or weakness Psychiatric Psychiatric: Denies anxiety, depression or suicidal thoughts Endocrine Endocrinology: Denies polydipsia, polyphagia or polyuria Hematologic/Lymphati c Hematologic/Lymphati c: Denies easy bleeding, easy bruising or lymphadenopathy Allergic/Immunologic Allergic/Immunologic ED: Denies mouth swelling, tongue swelling or urticaria EXAM Physical Exam Const Vital Signs: 06/16/24 15:41 06/16/24 15:44 Temperature 97.5 F L Temperature Source Oral Pulse Rate 57 L Respiratory Rate 16 Respiratory Effort Normal Non-Labored Respiratory Pattern Normal Blood Pressure 154/69 H Blood Pressure Mean 97 Pulse Ox 98 Oxygen Delivery Method Room Air Positive well nourished and well developed General Appearance ED: well developed and NAD HEENT Reports TM's clear and moist mucous membranes normocephalic and atraumatic; Negative for trauma or tenderness Tympanic Membrane ED: Yes TM's clear Eyes PERRL and EOMs intact bilaterally General Eye ED: Negative for pale conjunctiva or scleral icterus Neck no lymphadenopathy, supple and no JVD General: Negative for tenderness Chest Wall inspection of chest normal and palpation of chest normal Chest: Negative for tenderness Resp normal respiratory effort and clear to auscultation bilaterally Effort and Inspection: Negative for respiratory distress or pain with movement Auscultation: Negative for rhonchi, wheezes or diminished lung sounds Cardio regular rate, regular rhythm, S1 normal heart sound, S2 normal heart sound and no murmurs Peripheral Pulses: pulses 2+ throughout GI normal to inspection, nondistended, normoactive bowel sounds, soft to palpation, non-tender, non- distended and no masses Back/Spine no CVA tenderness and no thoracic nor lumbar tenderness Extremity Extremity Narrative: +2 edema from the knees down to the feet. No ropes or cords palpated. No cellulitic changes. General Extremety ED: Negative for edema General Extremity: Negative for edema Neuro oriented x3, CN's II-XII intact bilaterally, no sensory deficits noted and gait normal Sensorium / Orientation: awake, alert, oriented to person, oriented to place and oriented to time Motor Exam: strength 5/5 throughout and strength (more content not included)... Normal [facility] Thyroid Stim Hormone (TSH)on 06-16-2024 TSH 1.490 uIU/mL Normal 0.358-3.740 [facility] Comment on above: Performed By: #### L 100.0100, L500.4050, L503.6620, L501.9520 #### [facility] [address] [place], [address] Urinalysis, Completeon 06-16 BACTERIA 0 SEEN Normal None Seen [facility] Comment on above: Order Comment: CLEAN CATCH Performed By: #### L 400.0001 #### [facility] [address] [place], [address] EPI,SQUAMOUS 0 SEEN Normal 0-5 [facility] Comment on above: Order Comment: CLEAN CATCH Performed By: #### L 400.0001 #### [facility] [address] [place], [address] Mucus Ql (Urine sed) 0 SEEN Normal [facility] Comment on above: Order Comment: CLEAN CATCH Performed By: #### L 400.0001 #### [facility] [address] [place], [address] RBC 0 SEEN Normal 0-5 [facility] Comment on above: Order Comment: CLEAN CATCH Performed By: #### L 400.0001 #### [facility] [address] [place], [address] WBC 0 SEEN Normal 0-5 [facility] Comment on above: Order Comment: CLEAN CATCH Performed By: #### L 400.0001 #### [facility] [address] [place], [address] Venous Duplex US - Ramón Extre mon 06-16-2024 Venous Duplex US - Ramón Extrem [facility] [address] [place] [address] Venous Duplex US - Ramón Extrem 06/16/24 1558 MR#: [id number] Acct: [id number] Name: BISHOP CANALES Rep #: [id number] : 1990 33 From: Barrington Arambula MD Attending Dr: Status: DEP ER Ordering Dr: Roxana Mas DO Date: 06/16/24 Location: ED Sex: M C Admitted: Reason For Study: Bialteral leg swelling RIGHT LEFT GSV is normal. GSV is normal. CFV is compressible, spontaneous, phasic, CFV is compressible, spontaneous, phasic, competent and demonstrates normal competent, and demonstrates normal augmentation. augmentation. FV is compressible, spontaneous, phasic, FV is compressible, spontaneous, phasic, competent and demonstrates normal competent and demonstrates normal augmentation. augmentation. POP V is compressible, spontaneous, phasic, POP V is compressible, spontaneous, phasic, competent and demonstrates normal competent and demonstrates normal augmentation. augmentation. T/P Trunk is compressible. T/P Trunk is compressible. PTV is compressible. PTV is compressible. RT PerV is compressible. LT PerV is compressible. Procedure This is a venous duplex using B-mode, color flow and spectral Doppler. Exam performed portable in ED. A preliminary report was called and/or faxed to Dr. Mas. VL/Venous Duplex US - Ramón Extrem Interpretation Summary Deep veins of the bilateral lower extremities are patent and compressible segmentally. There is no evidence of bilateral lower extremity deep vein thrombosis. The bilateral great saphenous veins appear patent and compressible segmentally. Ordering Physician: Roxana Mas Referring Physician: Lamar Mejias Performed By: Bri Younger RVT 06/16/241956 Date Barrington Arambula MD CC: Dr. Roxana Mas, DO; No Primary Care Physician Date Dictated: 06/16/24 1558 Date Transcribed: 06/16/241956 Medical Field Representative: Signed [facility]03[facility]20[facility] BISHOP CANALES ([id number]) 1990 M Date Time Provider Department 07/03/22 [facility] During your visit today, we recorded the following information about you: Amie Lozada [facility] 07/03/2022 2:55 PM Signed Patient is asking for a call back to ask for the next step after he has completed the quit smoking with the nicotine patches. Patient states he has not quite gotten over the smoking and has dreams of smoking cigarettes. Please call him to discuss the next step, # verified Patient did state before we hung up he is having a hard time and could use the call back as soon as possible. Caty Beck Ma 07/03/2022 5:41 PM Signed Patient needs appointment to follow up. Allergies As of Date: 07/03/2022 Noted Allergy Reaction CYMBALTA (DULOXETINE) 07/07/2020 14 - Other: See Comments Comments: Increased suicidal thoughts Date Reviewed: 06/24/2022 Reviewed by: Tran Aleman LPN - Fully Assessed Reason for Visit: Patient Question [5214] Prescriptions as of 07/03/2022 - nicotine (NICODERM) 14 mg/24 hr Apply 1 Patch as directed every 24 hours for 14 days. Use the 14mg once daily for 2 weeks then start the 7mg patches for 2 weeks. - nicotine (NICODERM) 7 mg/24 hr Apply 1 Patch as directed every 24 hours for 14 days. Use the 14mg patches once daily for 2 weeks then start the 7mg patches daily for 2 weeks. - traZODone (DESYREL) 100 mg tablet Take 2 tablets by mouth daily at bedtime. - FLUoxetine (PROZAC) 40 mg capsule Take 1 capsule by mouth once daily. - busPIRone (BUSPAR) 10 mg tablet Take 1 tablet by mouth twice daily. Problem List As Of Date 07/03/2022 Noted Resolved Backache, unspecified [M54.9] 05/06/2011 Tobacco use disorder [F17.200] Auditory hallucinations [R44.0] ADHD [XXXH] Anxiety [F41.9] 01/16/2016 Mentally challenged [F79] 01/16/2016 Obesity, Class III, BMI 40-49.9 (morbid obesity*02/05/2018 07/07/2020 Encounter Status:Closed by CATY BECK MA on 07/03/22 [facility] CNOVon 06-24-2022 CNOV Office Visit (GENSWS) BISHOP CANALES ([id number]) 1990 M Date Time Provider Department 06/24/22 2:00 PM COLLINS NEFFS During your visit today, we recorded the following information about you: Temperature Pulse Blood pressure Weight 96.2 degrees 73/minute 110/76 127.9 kg Height 1.702 m Tran Aleman LPN 06/24/2022 1:47 PM Signed REVIEW OF SYSTEMS: General: The patient denies fatigue, denies weight loss, denies weight gain, denies feeling hot, and denies feelings of cold. Eyes: The patient denies glaucoma, denies eye injury/surgery, does wear glasses or contacts. Ear/Nose/Throat: The patient notes allergies, denies hayfever, denies ear infections, and denies bloody noses. Cardiovascular: The patient notes chest pain, denies heart disease, denies high blood pressure,denies cardiac stent, denies prior heart attack, denies irregular heart beat, denies high cholesterol, denies poor circulation, denies heart failure, other cardiac issues, denies claudication, denies cold feet, denies peripheral arterial stent. Respiratory: The patient denies tuberculosis, denies pneumonia, denies frequent cough, denies pulmonary embolism, notes shortness of breath, and denies coughing up blood. Gastrointestinal: The patient denies difficulty swallowing, denies acid reflux, denies ulcers, denies vomiting, denies jaundice/hepatitis, denies gallbladder problems, denies black or tarry stools, denies hemorrhoids, notes bleeding from rectum, denies diverticulitis, notes constipation, denies diarrhea, denies loss of stool control, and denies hernias. Kidney/Bladder: The patient denies kidney stones, denies urine infections, and denies bloody urine. Skin: The patient denies a history of skin cancer, denies bleeding/changing moles, and denies a history of skin rash. Neurologic: The patient denies a history of epilepsy/convulsions , denies headaches, denies head/spinal injuries, and denies stroke/TIA. Psychiatric: The patient notes psychiatric medications, notes depression, and notes voices, denies substance abuse. Endocrine: The patient denies thyroid disorders, denies diabetes, and denies hormonal problems. Hematologic: The patient denies a history of bruising, denies bleeding, and denies anemia, denies blood clots. Infections: The patient denies a history of measles and mumps, denies rheumatic fever, and denies sexually transmitted diseases. Musculoskeletal: The patient denies back pain/injury, denies back problems, denies sciatica, denies knee/foot trouble, denies arthritis, or denies gout. When was patient's last Mammogram screening? N/A Last Colonoscopy: none ALEX Short III, MD 06/24/2022 1:58 PM Signed HISTORY AND PHYSICAL [place] 1990 REFERRING PHYSICIAN: Kari Joiner APRN.CNP CHIEF COMPLAINT: Consult (Rectal abscess/) HPI: The patient is a 31 year old male with a complaint of painful lump in his anus. Patient states that this developed early last month was probably about the size of a grape. He was seen in internal medicine started on some Bactrim and the area now has gone down significantly. It is never drained. He is not having any pain with bowel movements.. The patient is being seen by me today at the request of Dr. Joiner for my opinion and advice regarding External hemorrhoid, thrombosed (primary encounter diagnosis). PAST MEDICAL HISTORY Diagnosis Date ADHD Anxiety Auditory hallucinations Under care of [facility] Bipolar disorder, unspecified ([facility]) 05/04/2020 Schizophrenia ([facility]) Tobacco use disorder PAST SURGICAL HISTORY Procedure Laterality Date PAST SURGICAL HISTORY OF [place] tooth extraction x 4 Current Outpatient Medications Medication Sig nicotine (NICODERM) 7 mg/24 hr Apply 1 Patch as directed every 24 hours for 14 days. Use the 14mg patches once daily for 2 weeks then start the 7mg patches daily for 2 weeks. traZODone (DESYREL) 100 mg tablet Take 2 tablets by mouth daily at bedtime. FLUoxetine (PROZAC) 40 mg capsule Take 1 capsule by mouth once daily. busPIRone (BUSPAR) 10 mg tablet Take 1 tablet by mouth twice daily. (Patient taking differently: Take 10 mg by mouth once daily.) nicotine (NICODERM) 14 mg/24 hr Apply 1 Patch as directed every 24 hours for 14 days. Use the 14mg once daily for 2 weeks then start the 7mg patches for 2 weeks. (Patient not taking: Reported on 06/24/2022) No current facility-administere d medications for this visit. ALLERGIES: Cymbalta [Duloxetine] PERSONAL HISTORY: Social History Tobacco Use Smoking status: Former Packs/day: 0.80 Years: 4.00 Pack years: 3.20 Types: Cigarettes Quit date: 12/23/2016 Years since quittin.5 Smokeless tobacco: Former Quit date: 06/13/2011 Vaping Use Vaping Use: Never used Substance Use Topics Alcohol use: No Drug use: No (more content not included)... Normal [facility] CNOVon 05-27-2022 CNOV Office Visit (INTMWS) BISHOP CANALES ([id number]) 1990 M Date Time Provider Department 05/27/22 1:40 PM KARI JOINER During your visit today, we recorded the following information about you: Pulse Respiration Blood pressure Weight 68/minute 16/minute 116/68 124.7 kg Kari Joiner APRN.CNP 05/27/2022 2:11 PM Signed gCC: Patient presents with: Mass: Lump near rectum, x few weeks. Painful to sit HPI Bishop Canales is a 31 year old male who presents today a painful lump to his rectum. Has had painful lump to rectum for 2 weeks. Feels like it was getting better but is still there. Denies drainage, fever, chills, diarrhea, consipation. Last Bm was today, soft formed, and not difficult to pass. Has a history of using anal toys but states after he was treated for intestinal worms by the ER a few months ago, has not used it and actually threw it away. Denies any previous rectal issues. Smokes 2-3 cigarrettes a day at this moment but was typically smoking over 6 cigarettes a day. Would like nicotine patches. Had them prescribed a few months ago,but did not go to the correct pharmacy. REVIEW OF SYSTEMS General: no fevers, no chills, no night sweats, no recurrent infections, no change in appetite, no change in energy, and no significant changes in weight Respiratory: no cough, no wheezing, no shortness of breath, no hemoptysis Cardiovascular: no chest pain, no chest pressure, no palpitations, and no swelling GI: No nausea, vomiting, or diarrhea : No history of dysuria, frequency or incontinence Neurologic: No headache, weakness, numbness, tingling, dizziness, syncope. PAST MEDICAL HISTORY Diagnosis Date ADHD Anxiety Auditory hallucinations Under care of [facility] Bipolar disorder, unspecified ([facility]) 05/04/2020 Tobacco use disorder PAST SURGICAL HISTORY Procedure Laterality Date PAST SURGICAL HISTORY OF [place] tooth extraction x 4 ALLERGIES Cymbalta [Duloxetine] MEDICATIONS traZODone (DESYREL) 100 mg tablet Take 2 tablets by mouth daily at bedtime. FLUoxetine (PROZAC) 40 mg capsule Take 1 capsule by mouth once daily. busPIRone (BUSPAR) 10 mg tablet Take 1 tablet by mouth twice daily. nicotine (NICODERM) 14 mg/24 hr Apply 1 Patch as directed every 24 hours. nicotine (NICODERM) 7 mg/24 hr Apply 1 Patch as directed every 24 hours. mupirocin (BACTROBAN) 2 % ointment Apply 1 application to affected area three times daily. FAMILY HISTORY Problem Relation Age of Onset Seizures Mother Psychiatry Father Bi-polar, schizophrenia None Maternal Grandmother None Maternal Grandfather None Paternal Grandmother None Paternal Grandfather other (Muscular Dystrophy) Brother Heart Brother palpitations other (muscular dystrophy) Brother at age 22 after requesting to be taken of life support. Social History Tobacco Use Smoking status: Former Packs/day: 0.80 Years: 4.00 Pack years: 3.20 Types: Cigarettes Quit date: 12/23/2016 Years since quittin.4 Smokeless tobacco: Former Quit date: 06/13/2011 Substance Use Topics Alcohol use: No Drug use: No Comment: History of Cannaboid use age 16 PHYSICAL EXAM BP 116/68 Pulse 68 Resp 16 Wt 124.7 kg (275 lb) BMI 43.07 kg/m? General Appearance: well appearing, in no acute distress, alert Skin: Skin color, texture, turgor normal for age; Eyes: conjunctiva pink and moist, no icterus, sclera white, non-injected Lungs: Lungs clear to auscultation. No wheezing, rhonchi, rales. Heart: RRR without murmur, gallop, or rubs. No ectopy Rectal: rectum normal except tender lump to right side of rectum that feels it may have fluctuation to the center. No redness to area or surrounding edema. Health maintenance reviewed with patient: HEPATITIS B(1 of 3 - 3-dose series) Never done HIV SCREENING Never done COVID-19 VACCINE(3 - Booster for Moderna series) due on 08/30/2021 INFLUENZA(1) due on 06/13/2022 DEPRESSION SCREENING due on 03/12/2023 DTAP,TDAP,TD(2 - Td or Tdap) due on 05/18/2029 HEPATITIS C SCREENING Completed DATA REVIEWED: No new labs ASSESSMENT/PLAN: 1. Rectal abscess - ICD9: 566, ICD10: K61.1 (primary diagnosis) - will start on bactrim, with the fluctuation and that it has been present for weeks it may need drained. -discussed importance of refraining from any usage of rectal toys or anal intercourse while this is healing. Also needs to tapia sure stool is soft and not difficult to pass to protect area. - CONSULT TO GENERAL SURGERY 2. Tobacco use disorder - ICD9: 305.1, ICD10: F17.200 - NICOTINE 14 MG/24 HR DAILY TRANSDERMAL PATCH - NICOTINE 7 MG/24 HR DAILY TRANSDERMAL PATCH Prescription instructions reviewed with patient as applicable. Potential red flag symptoms discussed with the patient. Reviewed appropriate action plan to take if red flag symptoms occur. Patient agreeable to tr (more content not included)... Normal [facility] CNOVon 03-12-2022 CNOV Office Visit (INTMWS) BISHOP CANALES ([id number]) 1990 M Date Time Provider Department 03/12/22 1:40 PM LAMAR MEJIAS IN[facility]WS During your visit today, we recorded the following information about you: Temperature Pulse Respiration Blood pressure 97.2 degrees 65/minute 14/minute 128/72 Weight Height 128.8 kg 1.702 m Lamar Mejias MD 03/12/2022 2:01 PM [facility] Patient presents with: Established Patient: 6 month follow up- wants another meds for round worms Bishop [place] is a 31 year old male who presents here today for Above Complaints. Health Maintenance HIV SCREENING COVID-19 VACCINE(3 - Booster for Moderna series) HPI He would like to take another dose of the deworming medication. He has not had any worm come out of the stool He has cats and thinks that he could have got it from them. He had passed one worm, while showering , it was around half feet long and thin and white Right now he is freaked out and wants to take medication. He has gained his weight back, has cut out all sorts of milk and trying to eat as much as iron, he is not drinking his calories, the only thing he has is water and decaf coffee. He does not want to have negative effects of caffeine to help him. He identifies himself as transexual, cis male. He wants to take hormonal therapy treatment to manifest female body. He is attacted more to men. Still smokes but looking to quit. He smokes around a pack for a whole week No problem-specific Assessment AND Plan notes found for this encounter. PAST MEDICAL HISTORY Diagnosis Date - ADHD - Anxiety - Auditory hallucinations Under care of [facility] - Bipolar disorder, unspecified ([facility]) 05/04/2020 - Tobacco use disorder PAST SURGICAL HISTORY Procedure Laterality Date - PAST SURGICAL HISTORY OF [place] tooth extraction x 4 FAMILY HISTORY Problem Relation Age of Onset - Seizures Mother - Psychiatry Father Bi-polar, schizophrenia - None Maternal Grandmother - None Maternal Grandfather - None Paternal Grandmother - None Paternal Grandfather - other (Muscular Dystrophy) Brother - Heart Brother palpitations - other (muscular dystrophy) Brother at age 22 after requesting to be taken of life support. Social History Tobacco Use - Smoking status: Former Smoker Packs/day: 0.80 Years: 4.00 Pack years: 3.20 Types: Cigarettes Quit date: 12/23/2016 Years since quittin.2 - Smokeless tobacco: Former User Quit date: 06/13/2011 Substance Use Topics - Alcohol use: No - Drug use: No Comment: History of Cannaboid use age 16 Past medical history, appointments, medications, allergies reviewed. Pertinent Lab/Diagnostic Studies are reviewed and discussed today Current Outpatient Medications: - traZODone (DESYREL) 100 mg tablet - FLUoxetine 10 mg tablet - mupirocin (BACTROBAN) 2 % ointment Review of Systems CONSTITUTIONAL: No fevers, chills night sweats, unintended weight loss CARDIOVASCULAR: No chest pain, dyspnea, palpitations, orthopnea, PND, ankle edema. PULM: No dyspnea, unexplained cough. GI: No dysphagia/odynophagi a, problematic reflux, constipation, diarrhea, changes in stool habits, hematochezia, melena. : No new urinary complaints, including dysuria, gross hematuria or pyuria. NEURO: No new balance problems, peripheral weakness/paresthesia s or numbness of concern. Physical Exam BP 128/72 (BP Site: Right Arm, BP Position: Sitting, BP Cuff Size: Large Adult) Pulse 65 Temp 36.2 ?C (97.2 ?F) Resp 14 Ht 170.2 cm (5' 7) Wt 128.8 kg (284 lb) SpO2 98% BMI 44.48 kg/m? General appearance: Well appearing, alert, in no acute distress, well nourished. Skin: Skin color, texture, turgor normal, no suspicious rashes or lesions Head: Normocephalic, no masses, lesions, tenderness or abnormalities Eyes: Anicteric sclera. Pupils are equally round and reactive to light. Extraocular movements are intact. Lungs: Lungs clear to auscultation. No wheezing, rhonchi, rales Heart: RRR without murmur, gallop, or rubs. Extremities: No deformities, edema, skin discoloration, clubbing or cyanosis. Good capillary refill. ASSESSMENT/PLAN: 1. 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 Anxiety and depression - ICD9: 300.00, 311, ICD10: F41.9, F32.A - FLUOXETINE 40 MG CAPSULE 3. Tobacco use disorder - ICD9: 305.1, ICD10: F17.200 - Cessation encouraged. - Physiologic and physical aspects of tobacco addiction as well as strategies for quitting were discussed. - Counseling was given focusing on the harmful effects of this addiction especially given the patient's medical condition(s) which will be worsened because of the chemicals in tobacco. 4. Class 3 severe obesity with serious comorbidity and (more content not included)... Normal [facility] Guillaume 03-04-2022 CNPN Telephone (INTMWS) BISHOP CANALES ([id number]) 1990 M Date Time Provider Department 03/04/22 LAMAR MEJIAS During your visit today, we recorded the following information about you: Amelia Dillard LPN 03/04/2022 9:00 AM Signed Prior authorization approved Case ID: [id number] Payer: [facility] Approved. Approval Details Authorized from January 30, 2022 to June 01, 2022 Electronic appeal: Not supported View History Medication Being Authorized albendazole (ALBENZA) 200 mg tablet () Take 2 tablets by mouth one time only for 1 dose. Repeat in 2-3 weeks to kill all the eggs, all household contacts to be treated. Dispense: 2 tablet Refills: 0 Start: 03/01/2022 End: 03/01/2022 Class: Normal This order has been released to its destination Pharmacy notified. Allergies As of Date: 03/04/2022 Noted Allergy Reaction CYMBALTA (DULOXETINE) 07/07/2020 14 - Other: See Comments Comments: Increased suicidal thoughts Date Reviewed: 09/11/2021 Reviewed by: Dottie Soriano LPN - Fully Assessed Reason for Visit: Insurance Authorization [[id number]] Prescriptions as of 03/04/2022 - traZODone (DESYREL) 100 mg tablet Take 1 tablet by mouth daily at bedtime. - FLUoxetine 10 mg tablet Take 1 tablet by mouth once daily. - mupirocin (BACTROBAN) 2 % ointment Apply 1 application to affected area three times daily. Problem List As Of Date 03/04/2022 Noted Resolved Backache, unspecified [M54.9] 05/06/2011 Tobacco use disorder [F17.200] Auditory hallucinations [R44.0] ADHD [XXXH] Anxiety [F41.9] 01/16/2016 Mentally challenged [F79] 01/16/2016 Obesity, Class III, BMI 40-49.9 (morbid obesity*02/05/2018 07/07/2020 Encounter Status:Closed by AMELIA DILLARD LPN on 03/04/22 Normal [facility] Basophil percentageon 2021 Chloride [Moles/Vol] 106 mmol/L 98-107 [facility] Work Phone: Glucose [Mass/Vol] 128 mg/dL 74-106 [facility] Work Phone: Comment on above: Fasting Glucose resu lt greater than or equal to 126 mg/dL suggests DIABETES MELLITUS per A.D.A. criteria. Potassium [Moles/Vol] 3.7 mmol/L 3.5-5.1 [facility] Work Phone: Sodium [Moles/Vol] 139 mmol/L 136-145 [facility] Work Phone: WBC (Bld) [#/Vol] 6.9 10*3/uL 4.4-11.0 [facility] Work Phone: Blood erythrocytes count (nu mber/volume)on 02-24-2022 RBC (Bld) [#/Vol] 4.97 10*6/uL 4.6-6.2 [facility] Work Phone: Blood hemoglobin measurement (mass/volume)on 02-24-2022 Hemoglobin (Bld) [Mass/Vol] 14.2 g/dL 13.0-16.5 [facility] Work Phone: Blood platelet mean volumeon 02-24-2022 Platelet mean volume (Bld) [Entitic vol] 9.3 fL 6.2-12.0 [facility] Work Phone: Determination of erythrocyte mean corpuscular volume (MCV)on 02-24-2022 MCV (RBC) [Entitic vol] 84.7 fL 80-94 [facility] Work Phone: Hematocrit Auto (Bld) [Volum e fraction]on 02-24-2022 Hematocrit (Bld) [Volume fraction] 42.1 % 40-54 [facility] Work Phone: Laboratory - Chemistry and C hemistry - challengeon 02-24-2022 CO2 [Moles/Vol] 27.0 mmol/L 21.0-32.0 [facility] Work Phone: Urea nitrogen/Creatinine [Mass ratio] 16.8 mg/mg 10-20 [facility] Work Phone: Laboratory - Hematology and Cell countson 02-24-2022 Erythrocyte distribution width (RBC) [Entitic vol] 39.2 fL 35.1-43.9 [facility] Work Phone: Erythrocyte distribution width (RBC) [Ratio] 12.8 % 11.6-14.6 [facility] Work Phone: MCH (RBC) [Entitic mass] 28.6 pg 27.0-32.0 [facility] Work Phone: MCHC Auto (RBC) [Mass/Vol]on 02-24-2022 MCHC (RBC) [Mass/Vol] 33.7 g/dL 32-36 [facility] Work Phone: No Panel Informationon 02-24 D-Dimer Quantitative (PE/DVT) < 0.27 FEU/ug/m 0.27-0.49 [facility] Work Phone: Comment on above: NORMAL D-Dimer level (<0.50) indicates no DVT or PE. Estimated Creatinine Clearance Calc 129.31 ml/min [facility] Work Phone: Estimated GFR (MDRD) Amer 165 mL/min >60 [facility] Work Phone: Comment on above: GFR Calc Estimated GFR (MDRD) Non-Af Amer 136 mL/min >60 [facility] Work Phone: Comment on above: Non- GFR Calc Troponin I High Sensitivity 4 pg/mL 3.0-78.0 [facility] Work Phone: Comment on above: Please Note: [place] Units and Gender Specific Reference Ranges. For more information see Policy Stat Procedure [place] High Sensitivity Troponin (TNIH) and attachments. Platelets bldon 02-24-2022 Platelets (Bld) [#/Vol] 242 10*3/uL 150-450 [facility] Work Phone: Serum or plasma calcium kirk urement (mass/volume)on 02-24-2022 Calcium [Mass/Vol] 9.5 mg/dL 8.5-10.1 [facility] Work Phone: Serum or plasma creatinine m easurement (mass/volume)on 02-24-2022 Creatinine [Mass/Vol] 0.72 mg/dL 0.70-1.30 [facility] Work Phone: Comment on above: The validity of the calculated GFR & GFRAA in patients over 70 years has not been determined. Clinical correlation is essential. Serum or plasma urea nitroge n measurement (mass/volume)on 02-24-2022 Urea nitrogen [Mass/Vol] 12 mg/dL 7-18 [facility] Work Phone: Thin prep Papanicolaou smear with manual screeningon 02-24-2022 Thin prep Papanicolaou smear with manual screening 6 02-24 [facility] Work Phone: CNPNon 02-21-2022 CNPN Telephone ([facility] [facility]) BISHOP CANALES ([id number]) 1990 Date Time Provider Department 02/21/22 LAMAR MEJIAS INTMWS During your visit today, we recorded the following information about you: Augusto Ramos RN 02/21/2022 2:28 PM Signed Patient reports he was seen in [facility] ER, diagnosed with roundworm, prescribed mebendazole 100 mg by mouth twice a day for 3 days. # 6 pills. Reports it will cost him over $3000.00, and ER tells him pcp will have to do PA, they do not do them. Reports he was taking a shower and found a worm while he was cleaning his rectum. Reports it was long and moving, and he was so freaked out he flushed it down the drain. So, ER had to take his word for it. Asking pcp office to do the PA Prior Authorization Documentation Prior authorization requested for the following medication: Medication: Mebendazole 100 mg by mouth twice daily for 3 days. # 6 pills. [facility] [employer] [facility] Phone number: [phone] Patient ID number: [id number] Amelia Nishant JOHNSON 02/21/2022 3:20 PM Signed Need to know what pharmacy pt took rx to or where they sent the rx to electronically. Do not believe the office can complete a PA on a medicine our providers did not order. It would have to be ran through the pharmacy first. If it is not formulary then could find out what is formulary. Augusto Ramos RN 02/21/2022 4:20 PM Signed Phoned patient and given message below. Patient states he will call his insurance to find out what medication is on formulary they will cover and let pcp office know. Janina Ming's pharmacy ran the Rx through and did not tell him if there was another medication. Lisa Hayden RN 02/28/2022 2:24 PM Signed Patient calling back with list of medications that are on his formulary for treatment of roundworm: Ivermectin, Praziquantel, and Albendazole. He states he has been having some abdominal discomfort. Advised ER follow up visit. He states he already has an appointment scheduled on 03/12/22 (six month follow up). JOSELIN Calhoun APRN.JAIME 03/01/2022 2:55 PM Signed Please let patient know that I have prescribed the albendazole. It is a one time dose. Thank you Kari Joiner APRN.JAIME Beck Ma 03/01/2022 3:04 PM Signed Left detailed message on [facility]. Allergies As of Date: 02/21/2022 Noted Allergy Reaction CYMBALTA (DULOXETINE) 07/07/2020 14 - Other: See Comments Comments: Increased suicidal thoughts Date Reviewed: 09/11/2021 Reviewed by: Dottie Soriano LPN - Fully Assessed Reason for Visit: Mebendazole PA [Other] Order(s):albendazole (ALBENZA) 200 mg tabletTake 2 tablets by mouth one time only for 1 dose. Repeat in 2-3 weeks to kill all the eggs, all household contacts to be treated.Disp: 2 tabletRfl: 0 Prescriptions as of 03/01/2022 - albendazole (ALBENZA) 200 mg tablet Take 2 tablets by mouth one time only for 1 dose. Repeat in 2-3 weeks to kill all the eggs, all household contacts to be treated. - traZODone (DESYREL) 100 mg tablet Take 1 tablet by mouth daily at bedtime. - FLUoxetine 10 mg tablet Take 1 tablet by mouth once daily. - mupirocin (BACTROBAN) 2 % ointment Apply 1 application to affected area three times daily. Problem List As Of Date 02/21/2022 Noted Resolved Backache, unspecified [M54.9] 05/06/2011 Tobacco use disorder [F17.200] Auditory hallucinations [R44.0] ADHD [XXXH] Anxiety [F41.9] 01/16/2016 Mentally challenged [F79] 01/16/2016 Obesity, Class III, BMI 40-49.9 (morbid obesity*02/05/2018 07/07/2020 Prescriptions ordered this encounter Disp Refills Start End ALBENDAZOLE 200 MG TABLET 2 ta* 0 03/01/2022 03/01/2022 Route: ORAL Sig: Take 2 tablets by mouth one time only for 1 dose. Repeat in 2-3 weeks to kill all the eggs, all household contacts to be treated. Encounter Status:Closed by CATY BECK MA on 03/01/22 [facility] CNOVon 09-11-2021 CNOV Office Visit (INTMWS) BISHOP CANALES ([id number]) 1990 M Date Time Provider Department 09/11/21 12:00 PM LAMAR MEJIAS INTAugustoWS During your visit today, we recorded the following information about you: Temperature Pulse Respiration Blood pressure 96.6 degrees 74/minute 16/minute 118/60 Weight Height 128.4 kg 1.702 m Lamar Mejias MD 09/11/2021 1:48 PM Signed Reason for Visit Patient presents with: Established Patient: follow up Bishop Canales is a 31 year old male who presents here today for Above Complaints.. Health Maintenance HIV SCREENING DEPRESSION SCREENING INFLUENZA(1) HPI Patient is able to live by himself despite being challenged.he is able to live by himself, make a good part of his living and eating decision and over all is faring very well. He may still need help some help with other situations. Anxiety, depression and mood disorder for which he is following up with Carlos Bird an MEDICAL BILLING CLERK at the counseling centre who is treating him right now. He was taken off the geodon, he feels better off the medication. He will send me his list of medication that he is on right now. Smoking: cutting down to 3/4 cigs a day. He is able to manage well with the 4/5 Morbid obesity: before the cold weather he was focusing on his diet and seems to only try for a healthy weight through diet. I discussed that exercise would be a essential adjunct to weight loss. He gained weight during ving ate a lot of left over. No problem-specific Assessment AND Plan notes found for this encounter. PAST MEDICAL HISTORY Diagnosis Date - ADHD - Anxiety - Auditory hallucinations Under care of [facility] - Bipolar disorder, unspecified ([facility]) 05/04/2020 - Tobacco use disorder PAST SURGICAL HISTORY Procedure Laterality Date - PAST SURGICAL HISTORY OF [place] tooth extraction x 4 FAMILY HISTORY Problem Relation Age of Onset - Seizures Mother - Psychiatry Father Bi-polar, schizophrenia - None Maternal Grandmother - None Maternal Grandfather - None Paternal Grandmother - None Paternal Grandfather - other (Muscular Dystrophy) Brother - Heart Brother palpitations - other (muscular dystrophy) Brother at age 22 after requesting to be taken of life support. Social History Tobacco Use - Smoking status: Former Smoker Packs/day: 0.80 Years: 4.00 Pack years: 3.20 Types: Cigarettes Quit date: 12/23/2016 Years since quittin.7 - Smokeless tobacco: Former User Quit date: 06/13/2011 Substance Use Topics - Alcohol use: No - Drug use: No Comment: History of Cannaboid use age 16 Past medical history, appointments, medications, allergies reviewed. Pertinent Lab/Diagnostic Studies are reviewed and discussed today Current Outpatient Medications: - ziprasidone (GEODON) 60 mg capsule - FLUoxetine 10 mg tablet - mupirocin (BACTROBAN) 2 % ointment Review of Systems CONSTITUTIONAL: No fevers, chills night sweats, unintended weight loss CARDIOVASCULAR: No chest pain, dyspnea, palpitations, orthopnea, PND, ankle edema. PULM: No dyspnea, unexplained cough. GI: No dysphagia/odynophagi a, problematic reflux, constipation, diarrhea, changes in stool habits, hematochezia, melena. : No new urinary complaints, including dysuria, gross hematuria or pyuria. NEURO: No new balance problems, peripheral weakness/paresthesia s or numbness of concern. Physical Exam BP 118/60 (BP Site: Right Arm, BP Position: Sitting, BP Cuff Size: Large Adult) Pulse 74 Temp (!) 35.9 ?C (96.6 ?F) Resp 16 Ht 170.2 cm (5' 7) Wt 128.4 kg (283 lb) SpO2 98% BMI 44.32 kg/m? General appearance: Well appearing, alert, in no acute distress, well nourished. Skin: Skin color, texture, turgor normal, no suspicious rashes or lesions Head: Normocephalic, no masses, lesions, tenderness or abnormalities Eyes: Anicteric sclera. Pupils are equally round and reactive to light. Extraocular movements are intact. Lungs: Lungs clear to auscultation. No wheezing, rhonchi, rales Heart: RRR without murmur, gallop, or rubs. Extremities: No deformities, edema, skin discoloration, clubbing or cyanosis. Good capillary refill. ASSESSMENT/PLAN: 1. Morbid obesity (HCC) - ICD9: 278.01, ICD10: E66.01 (primary diagnosis) He has been gaining weight slowly and steadily, Would like for him to start exercising, we discussed this with the patient I hope he will implement it - TSH BLD - CBC + DIFF 2. Lipid screening - ICD9: V77.91, ICD10: Z13.220 - LIPID PANEL BASIC 3. Encounter for screening examination for impaired glucose regulation and diabetes mellitus - ICD9: V77.1, ICD10: Z13.1 - COMP METABOLIC PANEL - HGB A1C Lamar Mejias MD Referring Provider: SELF [200] Allergies As of Date: 09/11/2021 Noted Allergy Reaction CYMBALTA (DULOXETINE) 07/07/2020 14 - Other: See Comments Comments: (more content not included)... [facility] 04-20-2018 CNPN Telephone (CDLBME) --------KATHY CANALES [place] ([id number]) 1990 MDate Time Provider Department04/20/18 MARÍA KING (RN) CDLBME During your visit today, we recorded the following information about you:María King RN, RN 04/20/2018 1:34 PM SignedLeft message regarding reminder for stress test tomorrow and given instrucitonsAllergie s As of Date: 04/20/2018(No Known Allergies)Date Reviewed: 03/02/2018Reviewed by: Willis Gordon - Fully AssessedReason for Visit: Reminder Call [[id number]]Problem List As Of Date 04/20/2018 Noted Resolved Backache, unspecified [M54.9] INVALID FOR* Tobacco use disorder [F17.200] More... Auditory hallucinations [R44.0] More... ADHD [XXXH] Anxiety [F41.9] INVALID FOR* More... Mentally challenged [F79] INVALID FOR* More... Obesity, Class III, BMI 40-49.9 (morbid obesity*INVALID FOR* Status:Closed by MARÍA KING on 04/20/18 [facility] Vital Signs Date Time Vital Sign Value Performing Clinician Facility 06-24-2022 13:43-0400 Body height 170.2 cm Collins Neff MD Work Phone: [facility] 06-24-2022 13:43-0400 Body temperature 96.21 [degF] Collins Neff MD Work Phone: [facility] 06-24-2022 13:43-0400 Body weight 127.91 kg Collins Neff MD Work Phone: [facility] 06-24-2022 13:43-0400 Diastolic blood pressure 76 mm[Hg] Collins Neff MD Work Phone: [facility] 06-24-2022 13:43-0400 Heart rate 73 /min Collins Neff MD Work Phone: [facility] 06-24-2022 13:43-0400 SaO2% (BldA) [Mass fraction] 98 % Collins Neff MD Work Phone: [facility] 06-24-2022 13:43-0400 Systolic blood pressure 110 mm[Hg] Collins Neff MD Work Phone: [facility] 05-27-2022 13:45-0400 Body weight 124.74 kg Kari Older CLAIMS ADJUSTER CROP.PRODUCT SAFETY TECHNICAL ASSISTANT Work Phone: [facility] 05-27-2022 13:45-0400 Diastolic blood pressure 68 mm[Hg] Kari Older CLAIMS ADJUSTER CROP.PRODUCT SAFETY TECHNICAL ASSISTANT Work Phone: [facility] 05-27-2022 13:45-0400 Heart rate 68 /min Kari Older CLAIMS ADJUSTER CROP.PRODUCT SAFETY TECHNICAL ASSISTANT Work Phone: [facility] 05-27-2022 13:45-0400 Respiratory rate 16 /min Kari Older CLAIMS ADJUSTER CROP.PRODUCT SAFETY TECHNICAL ASSISTANT Work Phone: [facility] 05-27-2022 13:45-0400 Systolic blood pressure 116 mm[Hg] Kari Older CLAIMS ADJUSTER CROP.PRODUCT SAFETY TECHNICAL ASSISTANT Work Phone: [facility] 02-24-2022 18:57-0400 Diastolic blood pressure 76 mm[Hg] [facility] Work Phone: 02-24-2022 18:57-0400 Heart rate 68 /min [facility] Work Phone: 02-24-2022 18:57-0400 Respiratory rate 15 /min [facility] Work Phone: 02-24-2022 18:57-0400 SaO2% (BldA) [Mass fraction] 98 % [facility] Work Phone: 02-24-2022 18:57-0400 Systolic blood pressure 142 mm[Hg] [facility] Work Phone: 02-24-2022 16:33-0400 Body height 165.[address] [facility] Work Phone: 02-24-2022 16:33-0400 Body mass index (BMI) [Ratio] 46.5 kg/m2 [facility] Work Phone: 02-24-2022 16:33-0400 Body temperature 97 [degF] [facility] Work Phone: 02-24-2022 16:33-0400 Body weight [address] [facility] Work Phone: 02-20-2022 18:01-0400 Body height 165.[address] [facility] Work Phone: 02-20-2022 18:01-0400 Body mass index (BMI) [Ratio] 47 kg/m2 [facility] Work Phone: 02-20-2022 18:01-0400 Body temperature 98.1 [degF] [facility] Work Phone: 02-20-2022 18:01-0400 Body weight 128.[address] [facility] Work Phone: 02-20-2022 18:01-0400 Diastolic blood pressure 89 mm[Hg] [facility] Work Phone: 02-20-2022 18:01-0400 Heart rate 80 /min [facility] Work Phone: 02-20-2022 18:01-0400 Respiratory rate 18 /min [facility] Work Phone: 02-20-2022 18:01-0400 SaO2% (BldA) [Mass fraction] 96 % [facility] Work Phone: 02-20-2022 18:01-0400 Systolic blood pressure 142 mm[Hg] [facility] Work Phone: Encounters Encounter Date Encounter Type Care Provider Facility Start: 05-23-2025 End: 05-23-2025 ambulatory [facility] Start: 02-24-2025 End: 02-24-2025 ambulatory No Primary Care Physician [facility] Work Phone: Start: 02-24-2025 End: 02-24-2025 Patient encounter procedure No Primary Care Physician -Laboratory Work Phone: Start: 02-24-2025 End: 02-24-2025 ambulatory No Primary Care Physician Facility:[facility] Start: 01-24-2025 End: 01-24-2025 ambulatory [facility] Start: 10-18-2024 End: 10-18-2024 ambulatory [facility] Start: 07-06-2024 End: 07-06-2024 ambulatory [facility] Start: 06-16-2024 ambulatory Barrington Arambula Facility:[facility] Start: 06-16-2024 End: 06-16-2024 Emergency department patient visit [facility] Facility:[facility] Start: 06-24-2022 End: 06-24-2022 ambulatory [facility] Facility:[facility] Start: 06-24-2022 End: 06-24-2022 Patient encounter procedure Collins Neff MD Work Phone: General Surgery Comment on above: External hemorrhoid, thrombosed (Primary Dx) Start: 05-27-2022 End: 05-27-2022 ambulatory [facility] Facility:[facility] Start: 05-27-2022 End: 05-27-2022 Patient encounter procedure Kari Joiner APRN.CNP Work Phone: Internal Medicine [place] Comment on above: Rectal abscess (Prim curt Dx); Tobacco use disorder Start: 03-12-2022 End: 03-12-2022 ambulatory [facility] Facility:[facility] Start: 03-04-2022 Telephone encounter Lamar moise MD Work Phone: Internal Medicine [place] Comment on above: Insurance Authorizat ion Start: 02-24-2022 End: 02-24-2022 Emergency department patient visit [facility] Start: 02-20-2022 End: 02-20-2022 Emergency department patient visit [facility] Start: 09-11-2021 End: 09-11-2021 ambulatory LAMAR MEJIAS [facility] Procedures Date Procedure Procedure Detail Performing Clinician Start: 02-24-2025 Vitamin D, 25-hydrox y measurement No Primary Care Physician Comment on above: Vitamin D StatusDefi ciency: <20 ng/mL (50nmol/L)Insufficiency: 20-30 ng/mL (50-75 nmol/L)Sufficiency: 30-100 ng/mL (75-250 nmol/L)Toxicity: >100 ng/mL (>250 nmol/L) Start: 03-12-2022 Adult depression scr eening assessment Kari Joiner APRN.CNP Work Phone: Start: 02-24-2022 Plain chest X-ray Start: 02-09-2019 Adult depression scr eening assessment Lamar Mejias MD Work Phone: Plan of Treatment Date Care Activity Detail Author Start: 05-18-2029 Urine microalbumin profile DTAP,TDAP,TD (2 - Td or Tdap) [facility] Start: 03-12-2023 Adult depression screening assessment DEPRESSION SCREENING [facility] Start: 06-13-2022 Influenza vaccination [facility] Start: 08-30-2021 COVID-19 VACCINE (3 - Booster for Moderna series) COVID-19 VACCINE (3 - Booster for Moderna series) [facility] Start: 02-10-2020 Adult depression screening assessment DEPRESSION SCREENING [facility] Start: 2008 HIV SCREENING HIV SCREENING [facility] Start: 1990 HEPATITIS B (1 of 3 - 3-dose series) HEPATITIS B (1 of 3 - 3-dose series) [facility] Patient Education [facility] Work Phone: Patient referral [facility] Work Phone: [facility] Immunizations Immunization Date Immunization Notes Care Provider Navneet person 05-18-2019 tetanus toxoid, redu mark diphtheria toxoid, and acellular pertussis vaccine, adsorbed Lamar Mejias MD Work Phone: [facility] 01-16-2016 pneumococcal polysaccharide vaccine, 23 valent Lamar Mejias MD Work Phone: [facility] Work Phone: Payers Date Payer Category Payer Self-pay [id number] 2022 Unknown [id number] 2017 Medicaid [facility] MEDIC A[facility] MEDICAID [id number] 2017-Present [phone] [address] [place] [address] Medicaid [id number] 2017 Medicaid [facility] MEDICAID [id number] 2017-Present [phone] [address] [place] [address] Medicaid [id number] 2017 Unknown [id number] Unknown [id number] Unknown [id number] Social History Date Type Detail Facility Start: 02-20-2022 End: 02-24-2022 Tobacco smoking status NHIS Unknown if ever smoked [facility] Work Phone: Start: 1990 Sex Assigned At Male W [facility] Start: 02-18-2017 End: 06-24-2022 Tobacco smoking status NHIS Ex-smoker [facility] Work Phone: End: 12-23-2016 History of tobacco use Current smoker [facility] Work Phone: End: 12-23-2016 History of tobacco use Cigarette Smoker [facility] Work Phone: Start: 02-18-2017 End: 06-24-2022 Cigarettes smoked current (pack per day) - Reported 0.8 [facility] Start: 02-18-2017 End: 06-24-2022 Tobacco use and exposure Former smokeless tobacco user [facility] Work Phone: End: 06-13-2011 History of tobacco use User of smokeless tobacco [facility] Work Phone: Start: 09-11-2021 End: 06-24-2022 Alcohol intake Current non-drinker of alcohol (finding) [facility] Start: 1990 Sex Assigned At Not on file [facility] Start: 05-07-2022 End: 06-24-2022 Exposure to SARS-CoV-2 (event) Not sure [facility] Start: 06-16-2024 Tobacco smoking stat us CAIS Smokes tobacco daily (finding) [facility] Clinical Notes 02-05-2018 to 06-24-2022 Collins Neff MD - 06/24/2022 1:53 PM Jessica Aleman LPN - 06/24/2022 1:45 PM EDTJoy MARTI Joiner - 05/27/2022 1:51 PM EDTTelephone Encounter - Amelia Nishant [employer]ER - 03/04/2022 8:58 AM EDT Note Date & Type Note Facility 06-24-2022 Note HNO ID: [id number] Author: Collins Neff MD Service: ? Author Type: Physician Type: Progress Notes Filed: 06/24/2022 1:58 PM Note Text: HISTORY AND PHYSICAL Bishop Canales 1990 REFERRING PHYSICIAN: Kari Joiner APRN.CNP CHIEF COMPLAINT: Consult (Rectal abscess/) HPI: The patient is a 31 year old male with a complaint of painful lump in his anus. Patient states that this developed early last month was probably about the size of a grape. He was seen in internal medicine started on some Bactrim and the area now has gone down significantly. It is never drained. He is not having any pain with bowel movements.. The patient is being seen by me today at the request of Dr. Joiner for my opinion and advice regarding External hemorrhoid, thrombosed (primary encounter diagnosis). PAST MEDICAL HISTORY Diagnosis Date ADHD Anxiety Auditory hallucinations Under care of [facility] Bipolar disorder, unspecified ([facility]) 05/04/2020 Schizophrenia ([facility]) Tobacco use disorder PAST SURGICAL HISTORY Procedure Laterality Date PAST SURGICAL HISTORY OF [place] tooth extraction x 4 Current Outpatient Medications Medication Sig nicotine (NICODERM) 7 mg/24 hr Apply 1 Patch as directed every 24 hours for 14 days. Use the 14mg patches once daily for 2 weeks then start the 7mg patches daily for 2 weeks. traZODone (DESYREL) 100 mg tablet Take 2 tablets by mouth daily at bedtime. FLUoxetine (PROZAC) 40 mg capsule Take 1 capsule by mouth once daily. busPIRone (BUSPAR) 10 mg tablet Take 1 tablet by mouth twice daily. (Patient taking differently: Take 10 mg by mouth once daily.) nicotine (NICODERM) 14 mg/24 hr Apply 1 Patch as directed every 24 hours for 14 days. Use the 14mg once daily for 2 weeks then start the 7mg patches for 2 weeks. (Patient not taking: Reported on 06/24/2022) No current facility-administered medications for this visit. ALLERGIES: Cymbalta [Duloxetine] PERSONAL HISTORY: Social History Tobacco Use Smoking status: Former Packs/day: 0.80 Years: 4.00 Pack years: 3.20 Types: Cigarettes Quit date: 12/23/2016 Years since quittin.5 Smokeless tobacco: Former Quit date: 06/13/2011 Vaping Use Vaping Use: Never used Substance Use Topics Alcohol use: No Drug use: No Comment: History of Cannaboid use age 16 FAMILY HISTORY: FAMILY HISTORY Problem Relation Age of Onset Seizures Mother Psychiatry Father Bi-polar, schizophrenia None Maternal Grandmother None Maternal Grandfather None Paternal Grandmother None Paternal Grandfather other (Muscular Dystrophy) Brother Heart Brother palpitations other (muscular dystrophy) Brother at age 22 after requesting to be taken of life support. REVIEW OF SYMPTOMS: The review of systems data was entered by the nurse and reviewed by [place] Nursing Notes: Tran AlemanALEX 06/24/2022 1:47 PM Signed REVIEW OF SYSTEMS: General: The patient denies fatigue, denies weight loss, denies weight gain, denies feeling hot, and denies feelings of cold. Eyes: The patient denies glaucoma, denies eye injury/surgery, does wear glasses or contacts. Ear/Nose/Throat: The patient notes allergies, denies hayfever, denies ear infections, and denies bloody noses. Cardiovascular: The patient notes chest pain, denies heart disease, denies high blood pressure,denies cardiac stent, denies prior heart attack, denies irregular heart beat, denies high cholesterol, denies poor circulation, denies heart failure, other cardiac issues, denies claudication, denies cold feet, denies peripheral arterial stent. Respiratory: The patient denies tuberculosis, denies pneumonia, denies frequent cough, denies pulmonary embolism, notes shortness of breath, and denies coughing up blood. Gastrointestinal: The patient denies difficulty swallowing, denies acid reflux, denies ulcers, denies vomiting, denies jaundice/hepatitis, denies gallbladder problems, denies black or tarry stools, denies hemorrhoids, notes bleeding from rectum, denies diverticulitis, notes constipation, denies diarrhea, denies loss of stool control, and denies hernias. Kidney/Bladder: The patient denies kidney stones, denies urine infections, and denies bloody urine. Skin: The patient denies a history of skin cancer, denies bleeding/changing moles, and denies a history of skin rash. Neurologic: The patient denies a history of epilepsy/convulsions, denies headaches, denies head/spinal injuries, and denies stroke/TIA. Psychiatric: The patient notes psychiatric medications, notes depression, and notes voices, denies substance abuse. Endocrine: The patient denies thyroid disorders, denies diabetes, and denies hormonal problems. Hematologic: The patient denies a history of bruising, denies bleeding, and denies anemia, denies blood clots. Infections: The patient denies a history of measles and mumps, denies rheumatic fever, and denies sexually transm (more content not included)... [facility] 06-24-2022 History of Presen t illness Narrative HISTORY AND PHYSICAL Bishop Canales 1990 REFERRING PHYSICIAN: Kari Joiner APRN.CNP CHIEF COMPLAINT: Consult (Rectal abscess/) HPI: The patient is a 31 year old male with a complaint of painful lump in his anus. Patient states that this developed early last month was probably about the size of a grape. He was seen in internal medicine started on some Bactrim and the area now has gone down significantly. It is never drained. He is not having any pain with bowel movements.. The patient is being seen by me today at the request of Dr. Joiner for my opinion and advice regarding External hemorrhoid, thrombosed (primary encounter diagnosis). PAST MEDICAL HISTORY Diagnosis Date ADHD Anxiety Auditory hallucinations Under care of [facility] Bipolar disorder, unspecified ([facility]) 05/04/2020 Schizophrenia ([facility]) Tobacco use disorder PAST SURGICAL HISTORY Procedure Laterality Date PAST SURGICAL HISTORY OF [place] tooth extraction x 4 Current Outpatient Medications Medication Sig nicotine (NICODERM) 7 mg/24 hr Apply 1 Patch as directed every 24 hours for 14 days. Use the 14mg patches once daily for 2 weeks then start the 7mg patches daily for 2 weeks. traZODone (DESYREL) 100 mg tablet Take 2 tablets by mouth daily at bedtime. FLUoxetine (PROZAC) 40 mg capsule Take 1 capsule by mouth once daily. busPIRone (BUSPAR) 10 mg tablet Take 1 tablet by mouth twice daily. (Patient taking differently: Take 10 mg by mouth once daily.) nicotine (NICODERM) 14 mg/24 hr Apply 1 Patch as directed every 24 hours for 14 days. Use the 14mg once daily for 2 weeks then start the 7mg patches for 2 weeks. (Patient not taking: Reported on 06/24/2022) No current facility-administered medications for this visit. ALLERGIES: Cymbalta [Duloxetine] PERSONAL HISTORY: Social History Tobacco Use Smoking status: Former Packs/day: 0.80 Years: 4.00 Pack years: 3.20 Types: Cigarettes Quit date: 12/23/2016 Years since quittin.5 Smokeless tobacco: Former Quit date: 06/13/2011 Vaping Use Vaping Use: Never used Substance Use Topics Alcohol use: No Drug use: No Comment: History of Cannaboid use age 16 FAMILY HISTORY: FAMILY HISTORY Problem Relation Age of Onset Seizures Mother Psychiatry Father Bi-polar, schizophrenia None Maternal Grandmother None Maternal Grandfather None Paternal Grandmother None Paternal Grandfather other (Muscular Dystrophy) Brother Heart Brother palpitations other (muscular dystrophy) Brother at age 22 after requesting to be taken of life support. REVIEW OF SYMPTOMS: The review of systems data was entered by the nurse and reviewed by [place] Nursing Notes: Tran Aleman LPN 06/24/2022 1:47 PM Signed REVIEW OF SYSTEMS: General: The patient denies fatigue, denies weight loss, denies weight gain, denies feeling hot, and denies feelings of cold. Eyes: The patient denies glaucoma, denies eye injury/surgery, does wear glasses or contacts. Ear/Nose/Throat: The patient notes allergies, denies hayfever, denies ear infections, and denies bloody noses. Cardiovascular: The patient notes chest pain, denies heart disease, denies high blood pressure,denies cardiac stent, denies prior heart attack, denies irregular heart beat, denies high cholesterol, denies poor circulation, denies heart failure, other cardiac issues, denies claudication, denies cold feet, denies peripheral arterial stent. Respiratory: The patient denies tuberculosis, denies pneumonia, denies frequent cough, denies pulmonary embolism, notes shortness of breath, and denies coughing up blood. Gastrointestinal: The patient denies difficulty swallowing, denies acid reflux, denies ulcers, denies vomiting, denies jaundice/hepatitis, denies gallbladder problems, denies black or tarry stools, denies hemorrhoids, notes bleeding from rectum, denies diverticulitis, notes constipation, denies diarrhea, denies loss of stool control, and denies hernias. Kidney/Bladder: The patient denies kidney stones, denies urine infections, and denies bloody urine. Skin: The patient denies a history of skin cancer, denies bleeding/changing moles, and denies a history of skin rash. Neurologic: The patient denies a history of epilepsy/convulsions, denies headaches, denies head/spinal injuries, and denies stroke/TIA. Psychiatric: The patient notes psychiatric medications, notes depression, and notes voices, denies substance abuse. Endocrine: The patient denies thyroid disorders, denies diabetes, and denies hormonal problems. Hematologic: The patient denies a history of bruising, denies bleeding, and denies anemia, denies blood clots. Infections: The patient denies a history of measles and mumps, denies rheumatic fever, and denies sexually transmitted diseases. Musculoskeletal: The patient denies back pain/injury, denies back problems, denies sciatica, denies knee/foot trouble, denies arthritis, or denies gout. When was patient's last Mammogram screening? N/A Last Colonoscopy: none Tran Aleman LPN PHYSICAL EXAMINATION: General: The patient is 31 year old male, well nourished, well hydrated in no acute distress. The patient is oriented to time, place, and person. VITALS: Blood pressure 110/76, pulse 73, temperature (!) 35.7 C (96.2 F), height 170.2 cm (5' 7), weight 127.9 kg (282 lb), SpO2 98 %. Rectal exam: Right lateral aspect of the anus shows a small thrombosed hemorrhoid that measures about the size of a pea. It is not appreciably tender. There is no redness swelling skin overlying it is normal. This is not an abscess there is no signs of any fistulization either. Extremities: no clubbing, cyanosis or edema. No adenopathy. Other: LABORATORY VALUES: As Noted RADIOLOGIC STUDIES: As Noted Assessment IMPRESSION: External hemorrhoid, thrombosed (primary encounter diagnosis) PLAN: At the present time I do not think there is anything else for us to do is getting smaller I have told him that if it were to come back I like to see him at once is at that point he may need to have a evacuation of a thrombosed hemorrhoid. But at the present time it is getting better and I anticipate that it would completely go away. Diagnoses: (K64.5) External hemorrhoid, thrombosed (primary encounter diagnosis) My findings have been communicated to Dr. Joiner via shared medical record. This note will be forwarded to Dr. Lamar Mejias MD. Return to Clinic: The patient is instructed to follow-up with me as needed. Collins Neff III, MD documented in this encounter [facility] 06-24-2022 Nurse Note REVIEW OF SYSTEMS: General: The patient denies fatigue, denies weight loss, denies weight gain, denies feeling hot, and denies feelings of cold. Eyes: The patient denies glaucoma, denies eye injury/surgery, does wear glasses or contacts. Ear/Nose/Throat: The patient notes allergies, denies hayfever, denies ear infections, and denies bloody noses. Cardiovascular: The patient notes chest pain, denies heart disease, denies high blood pressure,denies cardiac stent, denies prior heart attack, denies irregular heart beat, denies high cholesterol, denies poor circulation, denies heart failure, other cardiac issues, denies claudication, denies cold feet, denies peripheral arterial stent. Respiratory: The patient denies tuberculosis, denies pneumonia, denies frequent cough, denies pulmonary embolism, notes shortness of breath, and denies coughing up blood. Gastrointestinal: The patient denies difficulty swallowing, denies acid reflux, denies ulcers, denies vomiting, denies jaundice/hepatitis, denies gallbladder problems, denies black or tarry stools, denies hemorrhoids, notes bleeding from rectum, denies diverticulitis, notes constipation, denies diarrhea, denies loss of stool control, and denies hernias. Kidney/Bladder: The patient denies kidney stones, denies urine infections, and denies bloody urine. Skin: The patient denies a history of skin cancer, denies bleeding/changing moles, and denies a history of skin rash. Neurologic: The patient denies a history of epilepsy/convulsions, denies headaches, denies head/spinal injuries, and denies stroke/TIA. Psychiatric: The patient notes psychiatric medications, notes depression, and notes voices, denies substance abuse. Endocrine: The patient denies thyroid disorders, denies diabetes, and denies hormonal problems. Hematologic: The patient denies a history of bruising, denies bleeding, and denies anemia, denies blood clots. Infections: The patient denies a history of measles and mumps, denies rheumatic fever, and denies sexually transmitted diseases. Musculoskeletal: The patient denies back pain/injury, denies back problems, denies sciatica, denies knee/foot trouble, denies arthritis, or denies gout. When was patient's last Mammogram screening? N/A Last Colonoscopy: none Tran Aleman LPN documented in this encounter [facility] 05-27-2022 Note HNO ID: [id number] Author: Kari Joiner APRN.PRODUCT SAFETY TECHNICAL ASSISTANT Service: ? Author Type: Nurse Practitioner Type: Progress Notes Filed: 05/27/2022 2:11 PM Note Text: gCC: Patient presents with: Mass: Lump near rectum, x few weeks. Painful to sit HPI Bishop Canales is a 31 year old male who presents today a painful lump to his rectum. Has had painful lump to rectum for 2 weeks. Feels like it was getting better but is still there. Denies drainage, fever, chills, diarrhea, consipation. Last Bm was today, soft formed, and not difficult to pass. Has a history of using anal toys but states after he was treated for intestinal worms by the ER a few months ago, has not used it and actually threw it away. Denies any previous rectal issues. Smokes 2-3 cigarrettes a day at this moment but was typically smoking over 6 cigarettes a day. Would like nicotine patches. Had them prescribed a few months ago,but did not go to the correct pharmacy. REVIEW OF SYSTEMS General: no fevers, no chills, no night sweats, no recurrent infections, no change in appetite, no change in energy, and no significant changes in weight Respiratory: no cough, no wheezing, no shortness of breath, no hemoptysis Cardiovascular: no chest pain, no chest pressure, no palpitations, and no swelling GI: No nausea, vomiting, or diarrhea : No history of dysuria, frequency or incontinence Neurologic: No headache, weakness, numbness, tingling, dizziness, syncope. PAST MEDICAL HISTORY Diagnosis Date ADHD Anxiety Auditory hallucinations Under care of [facility] Bipolar disorder, unspecified (HCC) 05/04/2020 Tobacco use disorder PAST SURGICAL HISTORY Procedure Laterality Date PAST SURGICAL HISTORY OF [place] tooth extraction x 4 ALLERGIES Cymbalta [Duloxetine] MEDICATIONS traZODone (DESYREL) 100 mg tablet Take 2 tablets by mouth daily at bedtime. FLUoxetine (PROZAC) 40 mg capsule Take 1 capsule by mouth once daily. busPIRone (BUSPAR) 10 mg tablet Take 1 tablet by mouth twice daily. nicotine (NICODERM) 14 mg/24 hr Apply 1 Patch as directed every 24 hours. nicotine (NICODERM) 7 mg/24 hr Apply 1 Patch as directed every 24 hours. mupirocin (BACTROBAN) 2 % ointment Apply 1 application to affected area three times daily. FAMILY HISTORY Problem Relation Age of Onset Seizures Mother Psychiatry Father Bi-polar, schizophrenia None Maternal Grandmother None Maternal Grandfather None Paternal Grandmother None Paternal Grandfather other (Muscular Dystrophy) Brother Heart Brother palpitations other (muscular dystrophy) Brother at age 22 after requesting to be taken of life support. Social History Tobacco Use Smoking status: Former Packs/day: 0.80 Years: 4.00 Pack years: 3.20 Types: Cigarettes Quit date: 12/23/2016 Years since quittin.4 Smokeless tobacco: Former Quit date: 06/13/2011 Substance Use Topics Alcohol use: No Drug use: No Comment: History of Cannaboid use age 16 PHYSICAL EXAM BP 116/68 Pulse 68 Resp 16 Wt 124.7 kg (275 lb) BMI 43.07 kg/m? General Appearance: well appearing, in no acute distress, alert Skin: Skin color, texture, turgor normal for age; Eyes: conjunctiva pink and moist, no icterus, sclera white, non-injected Lungs: Lungs clear to auscultation. No wheezing, rhonchi, rales. Heart: RRR without murmur, gallop, or rubs. No ectopy Rectal: rectum normal except tender lump to right side of rectum that feels it may have fluctuation to the center. No redness to area or surrounding edema. Health maintenance reviewed with patient: HEPATITIS B(1 of 3 - 3-dose series) Never done HIV SCREENING Never done COVID-19 VACCINE(3 - Booster for Moderna series) due on 08/30/2021 INFLUENZA(1) due on 06/13/2022 DEPRESSION SCREENING due on 03/12/2023 DTAP,TDAP,TD(2 - Td or Tdap) due on 05/18/2029 HEPATITIS C SCREENING Completed DATA REVIEWED: No new labs ASSESSMENT/PLAN: 1. Rectal abscess - ICD9: 566, ICD10: K61.1 (primary diagnosis) - will start on bactrim, with the fluctuation and that it has been present for weeks it may need drained. -discussed importance of refraining from any usage of rectal toys or anal intercourse while this is healing. Also needs to tapia sure stool is soft and not difficult to pass to protect area. - CONSULT TO GENERAL SURGERY 2. Tobacco use disorder - ICD9: 305.1, ICD10: F17.200 - NICOTINE 14 MG/24 HR DAILY TRANSDERMAL PATCH - NICOTINE 7 MG/24 HR DAILY TRANSDERMAL PATCH Prescription instructions reviewed with patient as applicable. Potential red flag symptoms discussed with the patient. Reviewed appropriate action plan to take if red flag symptoms occur. Patient agreeable to treatment plan. Kari Joiner APRN.[facility] 05-27-2022 History of Presen t illness Narrative gCC: Patient presents with: Mass: Lump near rectum, x few weeks. Painful to sit HPI Bishop Canales is a 31 year old male who presents today a painful lump to his rectum. Has had painful lump to rectum for 2 weeks. Feels like it was getting better but is still there. Denies drainage, fever, chills, diarrhea, consipation. Last Bm was today, soft formed, and not difficult to pass. Has a history of using anal toys but states after he was treated for intestinal worms by the ER a few months ago, has not used it and actually threw it away. Denies any previous rectal issues. Smokes 2-3 cigarrettes a day at this moment but was typically smoking over 6 cigarettes a day. Would like nicotine patches. Had them prescribed a few months ago,but did not go to the correct pharmacy. REVIEW OF SYSTEMS General: no fevers, no chills, no night sweats, no recurrent infections, no change in appetite, no change in energy, and no significant changes in weight Respiratory: no cough, no wheezing, no shortness of breath, no hemoptysis Cardiovascular: no chest pain, no chest pressure, no palpitations, and no swelling GI: No nausea, vomiting, or diarrhea : No history of dysuria, frequency or incontinence Neurologic: No headache, weakness, numbness, tingling, dizziness, syncope. PAST MEDICAL HISTORY Diagnosis Date ADHD Anxiety Auditory hallucinations [facility] Bipolar disorder, unspecified ([facility]) 05/04/2020 Tobacco use disorder PAST SURGICAL HISTORY Procedure Laterality Date PAST SURGICAL HISTORY OF [place] tooth extraction x 4 ALLERGIES Cymbalta [Duloxetine] MEDICATIONS traZODone (DESYREL) 100 mg tablet Take 2 tablets by mouth daily at bedtime. FLUoxetine (PROZAC) 40 mg capsule Take 1 capsule by mouth once daily. busPIRone (BUSPAR) 10 mg tablet Take 1 tablet by mouth twice daily. nicotine (NICODERM) 14 mg/24 hr Apply 1 Patch as directed every 24 hours. nicotine (NICODERM) 7 mg/24 hr Apply 1 Patch as directed every 24 hours. mupirocin (BACTROBAN) 2 % ointment Apply 1 application to affected area three times daily. FAMILY HISTORY Problem Relation Age of Onset Seizures Mother Psychiatry Father Bi-polar, schizophrenia None Maternal Grandmother None Maternal Grandfather None Paternal Grandmother None Paternal Grandfather other (Muscular Dystrophy) Brother Heart Brother palpitations other (muscular dystrophy) Brother at age 22 after requesting to be taken of life support. Social History Tobacco Use Smoking status: Former Packs/day: 0.80 Years: 4.00 Pack years: 3.20 Types: Cigarettes Quit date: 12/23/2016 Years since quittin.4 Smokeless tobacco: Former Quit date: 06/13/2011 Substance Use Topics Alcohol use: No Drug use: No Comment: History of Cannaboid use age 16 PHYSICAL EXAM BP 116/68 Pulse 68 Resp 16 Wt 124.7 kg (275 lb) BMI 43.07 kg/m General Appearance: well appearing, in no acute distress, alert Skin: Skin color, texture, turgor normal for age; Eyes: conjunctiva pink and moist, no icterus, sclera white, non-injected Lungs: Lungs clear to auscultation. No wheezing, rhonchi, rales. Heart: RRR without murmur, gallop, or rubs. No ectopy Rectal: rectum normal except tender lump to right side of rectum that feels it may have fluctuation to the center. No redness to area or surrounding edema. Health maintenance reviewed with patient: HEPATITIS B(1 of 3 - 3-dose series) Never done HIV SCREENING Never done COVID-19 VACCINE(3 - Booster for Moderna series) due on 08/30/2021 INFLUENZA(1) due on 06/13/2022 DEPRESSION SCREENING due on 03/12/2023 DTAP,TDAP,TD(2 - Td or Tdap) due on 05/18/2029 HEPATITIS C SCREENING Completed DATA REVIEWED: No new labs ASSESSMENT/PLAN: 1. Rectal abscess - ICD9: 566, ICD10: K61.1 (primary diagnosis) - will start on bactrim, with the fluctuation and that it has been present for weeks it may need drained. -discussed importance of refraining from any usage of rectal toys or anal intercourse while this is healing. Also needs to tapia sure stool is soft and not difficult to pass to protect area. - CONSULT TO GENERAL SURGERY 2. Tobacco use disorder - ICD9: 305.1, ICD10: F17.200 - NICOTINE 14 MG/24 HR DAILY TRANSDERMAL PATCH - NICOTINE 7 MG/24 HR DAILY TRANSDERMAL PATCH Prescription instructions reviewed with patient as applicable. Potential red flag symptoms discussed with the patient. Reviewed appropriate action plan to take if red flag symptoms occur. Patient agreeable to treatment plan. Kari Joiner APRN.CNP documented in this encounter [facility] 03-12-2022 Note HNO ID: [id number] Author: Lamar Mejias MD Service: ? Author Type: Physician Type: Progress Notes Filed: 03/12/2022 2:01 PM Note Text: ncitReason for Visit Patient presents with: Established Patient: 6 month follow up- wants another meds for round worms Bishop Canales is a 31 year old male who presents here today for Above Complaints. Health Maintenance HIV SCREENING COVID-19 VACCINE(3 - Booster for Moderna series) HPI He would like to take another dose of the deworming medication. He has not had any worm come out of the stool He has cats and thinks that he could have got it from them. He had passed one worm, while showering , it was around half feet long and thin and white Right now he is freaked out and wants to take medication. He has gained his weight back, has cut out all sorts of milk and trying to eat as much as iron, he is not drinking his calories, the only thing he has is water and decaf coffee. He does not want to have negative effects of caffeine to help him. He identifies himself as transexual, cis male. He wants to take hormonal therapy treatment to manifest female body. He is attacted more to men. Still smokes but looking to quit. He smokes around a pack for a whole week No problem-specific Assessment AND Plan notes found for this encounter. PAST MEDICAL HISTORY Diagnosis Date - ADHD - Anxiety - Auditory hallucinations [facility] of [facility] - Bipolar disorder, unspecified ([facility]) 05/04/2020 - Tobacco use disorder PAST SURGICAL HISTORY Procedure Laterality Date - PAST SURGICAL HISTORY OF [place] tooth extraction x 4 FAMILY HISTORY Problem Relation Age of Onset - Seizures Mother - Psychiatry Father Bi-polar, schizophrenia - None Maternal Grandmother - None Maternal Grandfather - None Paternal Grandmother - None Paternal Grandfather - other (Muscular Dystrophy) Brother - Heart Brother palpitations - other (muscular dystrophy) Brother at age 22 after requesting to be taken of life support. Social History Tobacco Use - Smoking status: Former Smoker Packs/day: 0.80 Years: 4.00 Pack years: 3.20 Types: Cigarettes Quit date: 12/23/2016 Years since quittin.2 - Smokeless tobacco: Former User Quit date: 06/13/2011 Substance Use Topics - Alcohol use: No - Drug use: No Comment: History of Cannaboid use age 16 Past medical history, appointments, medications, allergies reviewed. Pertinent Lab/Diagnostic Studies are reviewed and discussed today Current Outpatient Medications: - traZODone (DESYREL) 100 mg tablet - FLUoxetine 10 mg tablet - mupirocin (BACTROBAN) 2 % ointment Review of Systems CONSTITUTIONAL: No fevers, chills night sweats, unintended weight loss CARDIOVASCULAR: No chest pain, dyspnea, palpitations, orthopnea, PND, ankle edema. PULM: No dyspnea, unexplained cough. GI: No dysphagia/odynophagia, problematic reflux, constipation, diarrhea, changes in stool habits, hematochezia, melena. : No new urinary complaints, including dysuria, gross hematuria or pyuria. NEURO: No new balance problems, peripheral weakness/paresthesias or numbness of concern. Physical Exam BP 128/72 (BP Site: Right Arm, BP Position: Sitting, BP Cuff Size: Large Adult) Pulse 65 Temp 36.2 ?C (97.2 ?F) Resp 14 Ht 170.2 cm (5' 7) Wt 128.8 kg (284 lb) SpO2 98% BMI 44.48 kg/m? General appearance: Well appearing, alert, in no acute distress, well nourished. Skin: Skin color, texture, turgor normal, no suspicious rashes or lesions Head: Normocephalic, no masses, lesions, tenderness or abnormalities Eyes: Anicteric sclera. Pupils are equally round and reactive to light. Extraocular movements are intact. Lungs: Lungs clear to auscultation. No wheezing, rhonchi, rales Heart: RRR without murmur, gallop, or rubs. Extremities: No deformities, edema, skin discoloration, clubbing or cyanosis. Good capillary refill. ASSESSMENT/PLAN: 1. 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 Anxiety and depression - ICD9: 300.00, 311, ICD10: F41.9, F32.A - FLUOXETINE 40 MG CAPSULE 3. Tobacco use disorder - ICD9: 305.1, ICD10: F17.200 - Cessation encouraged. - Physiologic and physical aspects of tobacco addiction as well as strategies for quitting were discussed. - Counseling was given focusing on the harmful effects of this addiction especially given the patient's medical condition(s) which will be worsened because of the chemicals in tobacco. 4. Class 3 severe obesity with serious comorbidity and body mass index (BMI) of 40.0 to 44.9 in adult, unspecified obesity type (HCC) - ICD9: 278.01, V85.41, ICD10: E66.01, Z68.41 Stable I encouraged the patient to continue with his walking to loose some weight. Lamar Mejias MD [facility] 03-04-2022 Miscellaneous Notes Images from the original note were not included. Prior authorization approved Case ID: [id number] Payer: [facility] Approved. Approval Details Authorized from January 30, 2022 to June 01, 2022 Electronic appeal: Not supported View History Medication Being Authorized albendazole (ALBENZA) 200 mg tablet () Take 2 tablets by mouth one time only for 1 dose. Repeat in 2-3 weeks to kill all the eggs, all household contacts to be treated. Dispense: 2 tablet Refills: 0 Start: 03/01/2022 End: 03/01/2022 Class: Normal This order has been released to its destination Pharmacy notified. documented in this encounter [facility] 09-11-2021 Note HNO ID: [id number] Author: Lamar Mejias MD Service: ? Author Type: Physician Type: Progress Notes Filed: 09/11/2021 1:48 PM Note Text: Reason for Visit Patient presents with: Established Patient: follow up Bishop Canales is a 31 year old male who presents here today for Above Complaints.. Health Maintenance HIV SCREENING DEPRESSION SCREENING INFLUENZA(1) HPI Patient is able to live by himself despite being challenged.he is able to live by himself, make a good part of his living and eating decision and over all is faring very well. He may still need help some help with other situations. Anxiety, depression and mood disorder for which he is following up with Carlos Bird an MEDICAL BILLING CLERK at the counseling centre who is treating him right now. He was taken off the geodon, he feels better off the medication. He will send me his list of medication that he is on right now. Smoking: cutting down to 3/4 cigs a day. He is able to manage well with the 4/5 Morbid obesity: before the cold weather he was focusing on his diet and seems to only try for a healthy weight through diet. I discussed that exercise would be a essential adjunct to weight loss. He gained weight during giving ate a lot of left over. No problem-specific Assessment AND Plan notes found for this encounter. PAST MEDICAL HISTORY Diagnosis Date - ADHD - Anxiety - Auditory hallucinations [facility] of [facility] - Bipolar disorder, unspecified (HCC) 05/04/2020 - Tobacco use disorder PAST SURGICAL HISTORY Procedure Laterality Date - PAST SURGICAL HISTORY OF [place] tooth extraction x 4 FAMILY HISTORY Problem Relation Age of Onset - Seizures Mother - Psychiatry Father Bi-polar, schizophrenia - None Maternal Grandmother - None Maternal Grandfather - None Paternal Grandmother - None Paternal Grandfather - other (Muscular Dystrophy) Brother - Heart Brother palpitations - other (muscular dystrophy) Brother at age 22 after requesting to be taken of life support. Social History Tobacco Use - Smoking status: Former Smoker Packs/day: 0.80 Years: 4.00 Pack years: 3.20 Types: Cigarettes Quit date: 12/23/2016 Years since quittin.7 - Smokeless tobacco: Former User Quit date: 06/13/2011 Substance Use Topics - Alcohol use: No - Drug use: No Comment: History of Cannaboid use age 16 Past medical history, appointments, medications, allergies reviewed. Pertinent Lab/Diagnostic Studies are reviewed and discussed today Current Outpatient Medications: - ziprasidone (GEODON) 60 mg capsule - FLUoxetine 10 mg tablet - mupirocin (BACTROBAN) 2 % ointment Review of Systems CONSTITUTIONAL: No fevers, chills night sweats, unintended weight loss CARDIOVASCULAR: No chest pain, dyspnea, palpitations, orthopnea, PND, ankle edema. PULM: No dyspnea, unexplained cough. GI: No dysphagia/odynophagia, problematic reflux, constipation, diarrhea, changes in stool habits, hematochezia, melena. : No new urinary complaints, including dysuria, gross hematuria or pyuria. NEURO: No new balance problems, peripheral weakness/paresthesias or numbness of concern. Physical Exam BP 118/60 (BP Site: Right Arm, BP Position: Sitting, BP Cuff Size: Large Adult) Pulse 74 Temp (!) 35.9 ?C (96.6 ?F) Resp 16 Ht 170.2 cm (5' 7) Wt 128.4 kg (283 lb) SpO2 98% BMI 44.32 kg/m? General appearance: Well appearing, alert, in no acute distress, well nourished. Skin: Skin color, texture, turgor normal, no suspicious rashes or lesions Head: Normocephalic, no masses, lesions, tenderness or abnormalities Eyes: Anicteric sclera. Pupils are equally round and reactive to light. Extraocular movements are intact. Lungs: Lungs clear to auscultation. No wheezing, rhonchi, rales Heart: RRR without murmur, gallop, or rubs. Extremities: No deformities, edema, skin discoloration, clubbing or cyanosis. Good capillary refill. ASSESSMENT/PLAN: 1. Morbid obesity (HCC) - ICD9: 278.01, ICD10: E66.01 (primary diagnosis) He has been gaining weight slowly and steadily, Would like for him to start exercising, we discussed this with the patient I hope he will implement it - TSH BLD - CBC + DIFF 2. Lipid screening - ICD9: V77.91, ICD10: Z13.220 - LIPID PANEL BASIC 3. Encounter for screening examination for impaired glucose regulation and diabetes mellitus - ICD9: V77.1, ICD10: Z13.1 - COMP METABOLIC PANEL - HGB A1C Lamar Mejias MD [facility] 02-05-2018 History of Past i llness Narrative Problem Noted Date Resolved Date Obesity, Class III, BMI 40-49.9 (morbid obesity) 02/05/2018 07/07/2020 documented as of this encounter (statuses as of 03/04/2022) [facility]04-26-2018 History of Past illness Narrative* Problem Noted Date Resolved Date Obesity, Class III, BMI 40-49.9 (morbid obesity) 02/05/2018 07/07/2020 documented as of this encounter (statuses as of 05/27/2022) [facility]04-26-2018 History of Past illness Narrative* Problem Noted Date Resolved Date Obesity, Class III, BMI 40-49.9 (morbid obesity) 02/05/2018 07/07/2020 documented as of this encounter (statuses as of 06/24/2022) [facility] information [facility] Work Phone: Evaluation note* Diagnosis Rectal abscess- Primary Abscess of anal and rectal regions Tobacco use disorder [facility] Diagnosis External hemorrhoid, thrombosed- Primary External thrombosed hemorrhoids [facility] Dis[facility] Additional Instructions While at the pharmacy you should bean picker a bottle of magnesium citrate and take a daily Colace until constipation [facility]olvesWA[facility] Work Phone: Hospital Discharge instructionsWAvita [facility] Work Phone: Reason for referral (narrative)No reason for referral information availableWAvita Health [facility] Work Phone: Summary Purpose Family History No Family History Records FoundNo Family History Records FoundNo Family History Records FoundNo Family History Records Found Advance Directives No Advanced Directives Records Found Advance Directive Response Recorded Date/ Time Living Will No February 20, 2022 6 :05pm Power of Gas Meter Repairer No February 20, 2022 6:05pm Advance Directive Response Recorded Date/ Time Living Will No February 24, 2022 4 :44pm Power of Gas Meter Repairer No February 24, 2022 4:44pm Chief Complaint and Reason for Visit Chief Complaint WORMS IN RECTUM Chief Complaint WORMS IN RECTUM GENERAL ILLNESS Reason for Referral Specialty Diagnoses / Procedures Referred By Contac t Referred To Contact General Surgery Diagnoses Rectal abscess Procedures CONSULT TO GENERAL SURGERY OFFICE/OUTPATIENT NEW HIGH MDM 60-74 MINUTES Older, MARTINE Pierce.PRODUCT SAFETY TECHNICAL ASSISTANT [address] [place] [address] Referral ID Status Reason Start Date Expiration Date Visits Requested Visits Authorized [id number] Authorized PCP Requested Referral 05/27/2022 05/27/2023 1 1 Additional Source Comments (unrecognized sect ion and content) No Status Records FoundNo Status Records FoundNo Status Records FoundNo Status Records Found INFORMATION SOURCE (unrecogn ized section and content) DATE CREATED AUTHOR 04/20/2018 [facility] DATE CREATED AUTHOR AUTHOR'S ORGANIZ ATION 07/14/2022 [facility] DATE CREATED AUTHOR AUTHOR'S ORGANIZ ATION 03/08/[address] [facility] DATE CREATED AUTHOR AUTHOR'S ORGANIZ ATION 05/24/2025 [facility] Goals (unrecognized section and content) Goals may be documented in a n alternate sectionGoals may be documented in an alternate sectionGoals may be documented in an alternate section Source Comments (unrecognize d section and content) In the event this informatio n is protected by the Federal Confidentiality of Alcohol and Drug Abuse Patient Records regulations: The Federal rules restrict any use of the information to criminally investigate or prosecute any alcohol or drug abuse patient.[facility] the event this information is protected by the Federal Confidentiality of Alcohol and Drug Abuse Patient Records regulations: The Federal rules restrict any use of the information to criminally investigate or prosecute any alcohol or drug abuse patient.[facility] the event this information is protected by the Federal Confidentiality of Alcohol and Drug Abuse Patient Records regulations: The Federal rules restrict any use of the information to criminally investigate or prosecute any alcohol or drug abuse patient.[facility] Reason for Visit (unrecogniz ed section and content) Reason Comments Insurance Authorization Reason Comments Mass Lump near rectum, x few weeks. Painful to sit Reason Comments Consult Rectal abscess Specialty Diagnoses / Procedures Referred By Sera lilly Referred To Contact General Surgery Diagnoses Rectal abscess Procedures CONSULT TO GENERAL SURGERY OFFICE/OUTPATIENT [facility] 60-74 MINUTES Kari Joiner APRN.PRODUCT SAFETY TECHNICAL ASSISTANT [address] [place] [address] Referral ID Status Reason Start Date Expiration Date V isits Requested Visits Authorized [id number] Closed PCP Requested Referral 05/27/2022 05/27/2023 1 1 Care Teams (unrecognized sec tion and content) Hollow Handle Knife Assembler Relationship Specialty Start Date End Date Lamar Mejias MD [address], [place] [id number] PCP - General Internal Medicine 01/16/16 Hollow Handle Knife Assembler Relationship Specialty Start Date End Date Lamar Mejias MD [address], [place] [id number] PCP - General Internal Medicine 01/16/16 Hollow Handle Knife Assembler Relationship Specialty Start Date End Date Lamar Mejias MD [address], [place] [id number] PCP - General Internal Medicine 01/16/16 Team Status: Active Member Role Status Dates No Primary Care Physician Primary Care Provider Active Team Status: Inactive Member Role Status Dates TERENCE BOOTH Attending Provider Active Start: February 24, 2025 End: February 24, 2025 No Primary Care Physician Primary Care Provider Active Start: February 24, 2025 End: February 24, 2025 FOR RECORDS PERTAINING TO PATIENTS WHO ARE OR HAVE BEEN ENROLLED IN A CHEMICAL DEPENDENCY/SUBSTANCEABUSE PROGRAM, SOME INFORMATION MAY BE OMITTED. This clinical summary was aggregated from multiple sources. Caution should be exercised in using it in the provision of clinical care. This summary normalizes information from multiple sources, and as a consequence, information in this document may materially change the coding, format and clinical context of patient data. In addition, data may be omitted in some cases. CLINICAL DECISIONS SHOULD BE BASED ON THE PRIMARY CLINICAL RECORDS. [facility] [employer] [facility]. provides no warranty or guarantee of the accuracy or completeness of information in this document.
== END | disposition home or self-care (01) ==
DX: F64.9 Gender identity disorder, unspecified (principal); Z51.81 Encounter for therapeutic drug level monitoring; Z79.890 Hormone replacement therapy
CPT/HCPCS: 36415; 80053; 82670; 84403; 85025

== ENCOUNTER 2025-08-18 20:08 | Emergency (ER) | payer MEDICAID, SELFPAY ==
[2025-08-18 20:08] VITALS: BP 152/84; PULSE 74; RESP 18; TEMP 37.4; O2SAT 99; BMI 41.9
--- NOTE | 2025-08-18 20:45 | CT_ITS ---
PROCEDURE: CT/Abdomen/Pelvis W IV Cont ONLY
[2025-08-18 20:46] LABS: Color, Urine Straw (Yellow); Glucose, Dipstick Normal (Normal); Ketone-Dipstick Negative (Negative); Leukocyte Esterase-Dipstick Negative /ul (Negative); Nitrite-Dipstick Negative (Negative); Occult Blood-Urine Negative /ul (Negative); Protein-Dipstick Negative (Negative); Specific Gravity, Urine 1.010 (1.002-1.030); Urine Bilirubin Dipstick Negative (Negative)
--- NOTE | 2025-08-18 20:54 | EX.ED.DYSGE1 ---
HPI History of Present Illness Chief Complaint: Abd Pain Detail of Chief Complaint: I think I have appendicitis Informant: patient Onset/Context/Timing Onset: Yesterday Context: Sudden Onset Timing: Continuous Quality: Discomfort Location: Proximity of McBurney's point, slightly lateral and superior Current Severity: Mild Maximum Severity: Moderate Worsened by: Possibly walking Relieved by: Nothing Associated Symptoms Associated Symptoms: Nausea and anorexia Narrative Narrative: Patient is a 34-year-old male who presents because he believes he has appendicitis. He is pointing lateral and superior to McBurney's point. Started yesterday. He reports nausea. He has had no appetite. He has not eaten since yesterday. He denies fever, chills night sweats. He denies dysuria, frequency, urgency or hematuria. He denies cardiac or respiratory symptoms. He denies history of renal ureterolithiasis. He denies direct or indirect trauma. He has not noted a rash. Prior similar symptoms: No Recent Illness/Hospitalization: No [facility] Medical History Schizophrenia Anxiety Depressed Home Medications ?Medication ?Instructions ?Recorded ?Last Taken ?Type trazodone 100 mg tablet 100 - 200 mg PO QHS 02/20/22 Unknown History buspirone 15 mg tablet 15 mg PO DAILY 08/18/25 Unknown History hydroxyzine pamoate 25 mg capsule 25 mg PO DAILY PRN anxiety 08/18/25 Unknown History vortioxetine 10 mg tablet 10 mg PO DAILY 08/18/25 Unknown History (Trintellix) Allergy/AdvReac Type Severity Reaction Status Date / Time amphetamine (From Adderall Allergy Chest Verified 08/18/25 20:11 XR) tightness dextroamphetamine (From Allergy Chest Verified 08/18/25 20:11 Adderall XR) tightness Social History Smoking Status: Current every day smoker tobacco type: cigarettes substance use type: does not use ROS ROS ED Constitutional Constitutional ED: Denies chills, fever(s), subjective or sweats Eyes Eyes: Denies blurry vision, change in vision or diplopia ENT ENT ED: Denies ear pain, rhinorrhea or sore throat Cardiovascular Cardiovascular: Denies chest pain, palpitations or racing heartbeat Respiratory/Chest Respiratory/Chest: Denies cough, dyspnea or dyspnea on exertion Gastrointestinal Gastrointestinal: Reports abdominal pain and nausea; Denies constipation, diarrhea, melena or vomiting Genitourinary Genitourinary ED: Denies dysuria, hematuria or urinary frequency Musculoskeletal Musculoskeletal: Denies arthralgias, back pain or myalgias Integumentary Denies rash Hematologic/Lymphatic Hematologic/Lymphatic: Reports systems reviewed and no addt'l complaints, except as documented EXAM Physical Exam Const Vital Signs: 08/18/25 20:08 Temperature 99.3 F H Temperature Source Oral Pulse Rate 74 Respiratory Rate 18 Blood Pressure 152/84 H Blood Pressure Mean 106 Pulse Ox 99 Oxygen Delivery Method Room Air Positive well nourished and well developed Constitutional Narrative: BMI is 41.9. General Appearance ED: well developed and NAD; Negative for pallor HEENT Reports moist mucous membranes HEENT Narrative: HEENT is grossly unremarkable. Eyes PERRL and EOMs intact bilaterally General Eye ED: Negative for scleral icterus Neck no lymphadenopathy, supple and no JVD Chest Wall inspection of chest normal and palpation of chest normal Resp normal respiratory effort and clear to auscultation bilaterally Cardio regular rate, regular rhythm, S1 normal heart sound, S2 normal heart sound and no murmurs GI non-distended and no masses; Negative for non-tender or hepatosplenomegaly Inspection: Negative for abdominal distention Auscultation: hypoactive bowel sounds Palpation: soft and tender other (Superior to McBurney's point) Narrative: There is no in the lymphadenopathy. Patient denies any testicular pain or scrotal swelling. Back/Spine no CVA tenderness Extremity normal to inspection General Extremety ED: Negative for edema or tenderness General Extremity: Negative for edema Neuro oriented x3, CN's II-XII intact bilaterally and no sensory deficits noted Sensorium / Orientation: alert Motor Exam: strength 5/5 throughout Psych mental status grossly normal Skin no rashes or lesions noted, no wounds and skin turgor normal General Skin Exam: elasticity normal; Negative for jaundice or pallor MDM MDM MDM Narrative Medical decision making narrative: Differential diagnosis is abdominal pain of unknown etiology, obstipation, mesenteric adenitis, doubt Crohn's disease, appendicitis. Will obtain CBC, UA and CT of the abdomen pelvis with IV contrast. Lab Data Attestation: I reviewed the patient's lab results. Lab results narrative: Macro urine is negative. CBC is normal Labs: Laboratory Results - last 24 hr 08/18/25 08/18/25 20:30 20:35 WBC 7.3 RBC 5.28 Hgb 15.1 Hct 43.1 MCV 81.6 MCH 28.6 MCHC 35.0 RDW Std Deviation 38.0 RDW Coeff of Yusef 12.7 Plt Count 272 MPV 9.6 Immature Gran % (Auto) 0.300 Neut % (Auto) 63.4 Lymph % (Auto) 28.6 [place] % (Auto) 5.8 Eos % (Auto) 1.1 Baso % (Auto) 0.8 Absolute Neuts (auto) 4.6 Absolute Lymphs (auto) 2.08 Nucleated RBC % 0 Urine Color Straw Urine Clarity Clear Urine pH 6.0 Ur Specific [place] 1.010 Urine Protein Negative Urine Glucose (UA) Normal Urine Ketones Negative Urine Occult Blood Negative Urine Nitrite Negative Urine Bilirubin Negative Urine Urobilinogen Normal Ur Leukocyte Esterase Negative Radiography Diagnostic Testing: Clinical Impression(s) from Imaging Studies Abdomen/Pelvis CT 08/18/25 20:45 IMPRESSION: No CT evidence of an acute abdominal or pelvic process. Reading Location: [facility] Treatment and Re-Evaluation :: Patient was updated at 2135. He was informed per my review of the CT I do not see evidence of appendicitis or any abnormality. He was told that I am awaiting formal read by radiologist. He was told his white count is normal his UA is unremarkable. Radiology did interpret the CT and the interpretation is negative for any abdominal or pelvic abnormality. Therefore, will discharge to home Discharge Plan Triage Chief Complaint: Abd Pain ED Provider: Agus Penny Dx/Rx/DC Orders Clinical Impression: Abdominal pain, acute, right lower quadrant, Nausea, Anorexia, Elevated blood pressure reading without diagnosis of hypertension, Low grade fever, History of schizophrenia Instructions: ED Abdominal Pain Unkn Cause Male... Prescriptions: No Action trazodone 100 mg tablet 100 - 200 mg PO QHS Trintellix 10 mg tablet 10 mg PO DAILY buspirone 15 mg tablet 15 mg PO DAILY hydroxyzine pamoate 25 mg capsule 25 mg PO DAILY PRN (Reason: anxiety) Primary Care Provider: Care Physician,No Primary Referrals: Care Physician,No Primary [Primary Care Provider, Medical] Activity Restrictions/Additional Instructions: Follow-up with your doctor as needed. The cause of your abdominal pain is unknown. Print Language: Tanzanian Disposition Disposition: Home, Self Care
[2025-08-18 20:56] LABS: Hematocrit 43.1 % (40-54); Hemoglobin 15.1 g/dL (13.0-16.5); Immature Granulocytes Count 0.020 X10^3/uL (0.0-0.0); Mean Corp Hgb Conc 35.0 g/dL (32-36); Mean Corpuscular Volume 81.6 fL (80-94); Mean Platelet Vol. 9.6 fl (6.2-12.0); NRBC Flagged by Analyzer 0 % (0-5); Platelet Count 272 K/mm3 (150-450); RBC Distribution Width CV 12.7 % (11.6-14.6); RBC Distribution Width SD 38.0 fl (35.1-43.9); Red Blood Count 5.28 M/mm3 (4.6-6.2); White Blood Count 7.3 K/mm3 (4.4-11.0)
[2025-08-18 21:45] LABS: Anion Gap 11 (5-15); BUN 8 mg/dL (4-19); BUN/Creat Ratio 11.8 RATIO (10-20); Calcium,Total 9.7 mg/dL (7.6-11.0); Carbon Dioxide 23.5 mmol/L (21.0-32.0); Chloride 102 mmol/L (98-108); Estimated Creatinine Clearance 190.06 ml/min (50-250); Glucose 109 mg/dL (70-99); Potassium 3.9 mmol/L (3.3-5.1)
[2025-08-18 22:00] VITALS: BP 125/65; PULSE 58; RESP 16; TEMP 36.6; O2SAT 99
== END 2025-08-18 22:01 | disposition home or self-care (01) ==
PROVIDERS: Emergency Provider Emergency Medicine; Visit Provider Emergency Medicine
DX: R10.31 Right lower quadrant pain (principal); R03.0 Elevated blood-pressure reading, without diagnosis of hypertension; F41.9 Anxiety disorder, unspecified; F32.A Depression, unspecified; Z79.899 Other long term (current) drug therapy; F17.210 Nicotine dependence, cigarettes, uncomplicated; R11.0 Nausea; R63.0 Anorexia; R50.9 Fever, unspecified; Z86.59 Personal history of other mental and behavioral disorders
CPT/HCPCS: 74177; 80048; 81002; 85025; 99282; Q9967; A4216